=== PATIENT | male | born 1975 | race Caucasian/White ===

== ENCOUNTER 2020-09-21 15:35 | Emergency (ER) | payer OTHER ==
[~2020-09-21] VITALS: Ht 182.9 cm; Wt 113.4 kg
[2020-09-21] MEDS ORDERED: GEMFIBROZIL600 MG PO (15:46)
[2020-09-21] MEDS ORDERED: PRILOSEC OTC20 MG PO (15:47)
[2020-09-21] MEDS ORDERED: BACTRIM DS TAB1 EACH PO (18:41)
[2020-09-21] MEDS ORDERED: CEPHALEXIN500 M1 PO (18:41)
[2020-09-21] MEDS ORDERED: HYDROCODON-ACE1 EA11 PO (18:41)
== END 2020-09-21 18:55 | disposition home or self-care (01) ==
LOC: ED 15:35
DX: M70.41 Prepatellar bursitis, right knee (principal); E78.00 Pure hypercholesterolemia, unspecified; K21.9 Gastro-esophageal reflux disease without esophagitis; F17.200 Nicotine dependence, unspecified, uncomplicated; Z79.899 Other long term (current) drug therapy
CPT/HCPCS: 99283; A9270

== ENCOUNTER 2020-09-22 20:31 | Emergency (ER) | payer OTHER ==
[~2020-09-22] VITALS: Ht 182.9 cm; Wt 108.9 kg
[~2020-09-22 20:31] MED LIST: BACTRIM DS TAB1 EACH PO; CEPHALEXIN500 M1 PO; GEMFIBROZIL600 MG PO; HYDROCODON-ACE1 EA11 PO; PRILOSEC OTC20 MG PO
--- OUTSIDE RECORDS SUMMARY | 2020-09-22 20:40 | XMS ---
PreManage Notification: DILEEP CHIN Security Hog Tender Events No recent Security Events currently on file CRITERIA MET - [facility] - 2 Visits in 30 Days CARE PROVIDERS There are no care providers on record at this time. Kane has no Care Guidelines for this patient. Sid VISIT COUNT (12 MO.) 2 [facility] TOTAL 2 NOTE: Visits indicate total known visits. ED/C VISIT TRACKING (12 MO.) [facility] COMPLAINT: - R KNEE PAIN 09/21/2020 15:36 [facility] [place] TYPE: Emergency COMPLAINT: - RIGHT LEG INJ INPATIENT VISIT TRACKING (12 MO.) No inpatient visits to display in this time frame [email or web address]
== END 2020-09-23 00:10 | disposition home or self-care (01) ==
LOC: ED 20:31
DX: L03.115 Cellulitis of right lower limb (principal); E78.00 Pure hypercholesterolemia, unspecified; K21.9 Gastro-esophageal reflux disease without esophagitis; F17.200 Nicotine dependence, unspecified, uncomplicated; Z79.899 Other long term (current) drug therapy
CPT/HCPCS: 80053; 83605; 85025; 96374; 99283-25; J3370; J7060

== ENCOUNTER 2024-09-26 09:08 | Emergency (ER) | payer MEDICAID ==
[~2024-09-26] VITALS: Ht 182.9 cm; Wt 123.0 kg
[2024-09-26] MEDS ORDERED: HYDROmorphone HCL 1 MG/ML SYR IV ONE ×3 (09:30→12:45)
[2024-09-26] MEDS ORDERED: SODIUM CHLORIDE 0.9% 1,000 ML IV ONE (09:30)
[2024-09-26 09:46] LABS: BASOPHILS 0.5 % (0.2-1.2); EOSINOPHILS 4.1 % (0.8-7.0); LYMPHOCYTES 32.9 % (21.8-53.1); MCH 29.6 PG (25.7-32.2); MCHC 34.9 g/dL (32.3-36.5); MCV 84.7 fL (79.0-92.2); MONOCYTES 5.8 % (5.3-12.2); NEUTROPHILS 56.4 % (34.0-67.9); RBC 5.37 M/uL (4.63-6.08)
[2024-09-26] MEDS ORDERED: FREESTYLE LIBR1 EAC8 MC (09:51)
[2024-09-26] MEDS ORDERED: HUMALOG100 UNIT/2 SUB-Q (09:52)
[2024-09-26] MEDS ORDERED: INSULIN GL300 UNIT/1 (09:52)
[2024-09-26 09:55] LABS: GLOMERULAR FILTRATION RATE,EST 90.0 mL/min (>60); PROTEIN, TOTAL 7.3 g/dL (6.4-8.2); UREA NITROGEN 20.0 mg/dL (7-18)
[2024-09-26 10:27] LABS: ALT (SGPT) 31.0 U/L (14-59); AST (SGOT) 20.0 U/L (15-37)
[2024-09-26 12:46] VITALS: BP 104/69
[2024-09-27] MEDS ORDERED: PROMETHAZINE HC25 M1 PO (15:34)
[2024-09-27] MEDS ORDERED: HYDROCODON-ACE1 EA11 PO (15:34)
== END 2024-09-26 13:01 | disposition home or self-care (01) ==
LOC: ED 09:08
PROVIDERS: Emergency Medicine
DX: R10.9 Unspecified abdominal pain (principal); E78.00 Pure hypercholesterolemia, unspecified; K21.9 Gastro-esophageal reflux disease without esophagitis; F17.200 Nicotine dependence, unspecified, uncomplicated; Z87.19 Personal history of other diseases of the digestive system; Z90.49 Acquired absence of other specified parts of digestive tract; Z79.4 Long term (current) use of insulin; Z79.899 Other long term (current) drug therapy
CPT/HCPCS: 36415; 74177; 80053; 83690; 85025; 96375; 96376; 99284-25; J1171; J2405; J7030; Q9967

== ENCOUNTER 2024-09-27 12:07 | Emergency (ER) | payer OTHER ==
[~2024-09-27] VITALS: Ht 182.9 cm; Wt 123.0 kg
[~2024-09-27 12:07] MED LIST changes: +FREESTYLE LIBR1 EAC8 MC; +HUMALOG100 UNIT/2 SUB-Q; +INSULIN GL300 UNIT/1
--- OUTSIDE RECORDS SUMMARY | 2024-09-27 12:15 | XMS ---
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 Kane has no Care Guidelines for this patient. Sid VISIT COUNT (12 MO.) 2 [facility] TOTAL 4 NOTE: Visits indicate total known visits. ED/UCC VISIT TRACKING (12 MO.) 09/27/2024 12:07 [facility] [place] TYPE: Emergency COMPLAINT: - FLANK PIAN 09/26/2024 09:08 [facility] [place] TYPE: Emergency COMPLAINT: - ABDOMINAL PAIN 03/18/2024 11:10 [facility] TYPE: Emergency DIAGNOSES: - Epigastric pain - Abdominal Pain 03/13/2024 00:41 [facility] TYPE: Emergency DIAGNOSES: - Periapical abscess without sinus - Dental Problem INPATIENT VISIT TRACKING (12 MO.) No inpatient visits to display in this time frame [id number]
[2024-09-27 12:26] LABS: BASOPHILS 0.5 % (0.2-1.2); EOSINOPHILS 4.4 % (0.8-7.0); LYMPHOCYTES 36.1 % (21.8-53.1); MCH 29.2 PG (25.7-32.2); MCHC 35.0 g/dL (32.3-36.5); MCV 83.6 fL (79.0-92.2); MONOCYTES 5.9 % (5.3-12.2); NEUTROPHILS 52.8 % (34.0-67.9); RBC 5.30 M/uL (4.63-6.08)
[2024-09-27 12:42] LABS: GLOMERULAR FILTRATION RATE,EST 87.0 mL/min (>60); PROTEIN, TOTAL 7.5 g/dL (6.4-8.2); UREA NITROGEN 18.0 mg/dL (7-18)
[2024-09-27 13:08] LABS: ALT (SGPT) 32.0 U/L (14-59)
[2024-09-27] MEDS ORDERED: HYDROmorphone HCL 1 MG/ML SYR IV PRN (13:15)
[2024-09-27] MEDS ORDERED: SODIUM CHLORIDE 0.9% 1,000 ML IV ONE (13:15)
[2024-09-27 13:50] LABS: AST (SGOT) 20.0 U/L (15-37)
[2024-09-27 14:05] LABS: BLOOD/HGB, URINE NEGATIVE (Negative); KETONE, URINE NEGATIVE (Negative); LEUK ESTERASE, URINE NEGATIVE (negative); NITRITE, URINE NEGATIVE (negative)
[2024-09-27] MEDS ORDERED: PROMETHAZINE HC25 M1 PO (15:34)
[2024-09-27] MEDS ORDERED: HYDROCODON-ACE1 EA11 PO (15:34)
[2024-09-27] MEDS ORDERED: HYDROCODONE/ACETA 5/325 TAB PO ONE (15:45)
[2024-09-27 15:54] VITALS: BP 124/65
== END 2024-09-27 15:54 | disposition home or self-care (01) ==
LOC: ED 12:07
PROVIDERS: Emergency Medicine
DX: R10.9 Unspecified abdominal pain (principal); E78.00 Pure hypercholesterolemia, unspecified; K21.9 Gastro-esophageal reflux disease without esophagitis; E11.9 Type 2 diabetes mellitus without complications; F17.200 Nicotine dependence, unspecified, uncomplicated; Z79.4 Long term (current) use of insulin; Z79.899 Other long term (current) drug therapy
CPT/HCPCS: 36415; 80053; 81003; 83690; 83735; 85025; 96374; 96375; 99284-25; J1171; J1790; J2405; J7030

== ENCOUNTER 2024-11-15 18:49 | Emergency (ER) | payer MEDICAID ==
[~2024-11-15] VITALS: Ht 182.9 cm; Wt 122.8 kg
[~2024-11-15 18:49] MED LIST changes: -INSULIN GL300 UNIT/1; +INSULIN GL300 UNIT/1 SUB-Q; +OMEPRAZOLE20 MG PO; -PRILOSEC OTC20 MG PO; +PROMETHAZINE HC25 M1 PO
[2024-11-15 19:39] LABS: BASOPHILS 0.4 % (0.2-1.2); EOSINOPHILS 3.7 % (0.8-7.0); LYMPHOCYTES 37.6 % (21.8-53.1); MCH 31.8 PG (25.7-32.2); MCHC 37.4 g/dL (32.3-36.5); MCV 84.9 fL (79.0-92.2); MONOCYTES 8.3 % (5.3-12.2); NEUTROPHILS 49.8 % (34.0-67.9); RBC 4.97 M/uL (4.63-6.08)
[2024-11-15] MEDS ORDERED: LACTATED RINGER'S 1,000 ML IV ONE (19:45)
[2024-11-15 20:11] LABS: AMPHETAMINES, URINE NEGATIVE (NEGATIVE); BARBITURATES, URINE NEGATIVE (NEGATIVE); BENZODIAZEPINE, URINE NEGATIVE (NEGATIVE); CANNABINOID, URINE POSITIVE (NEGATIVE); COCAINE, URINE NEGATIVE (NEGATIVE); ECSTASY, URINE NEGATIVE (NEGATIVE); FENTANYL, URINE NEGATIVE (NEGATIVE); METHADONE, URINE NEGATIVE (NEGATIVE); OPIATES, URINE NEGATIVE (NEGATIVE); OXYCODONE, URINE NEGATIVE (NEGATIVE); PHENCYCLIDINE, URINE NEGATIVE (NEGATIVE)
[2024-11-15 20:25] LABS: CHOLESTEROL/HDL RATIO 15.0; NON-HDL CHOLESTEROL 364.00
[2024-11-15 20:27] LABS: GLOMERULAR FILTRATION RATE,EST 82 mL/min (>60); PROTEIN, TOTAL 7.1 g/dL (6.4-8.2); UREA NITROGEN 24 mg/dL (7-18)
[2024-11-15 21:00] LABS: AST (SGOT) 18 U/L (15-37)
[2024-11-15] MEDS ORDERED: Insulin Regular, Human 100 UNIT/ML ML IV ONE (21:00)
[2024-11-15] MEDS ORDERED: ACETAMINOPHEN 500 MG TAB PO ONE (21:15)
[2024-11-15] MEDS ORDERED: HYDROmorphone HCL 1 MG/ML SYR IV PRN (21:45)
[2024-11-15 21:46] LABS: ALT (SGPT) 30 U/L (14-59)
[2024-11-15] MEDS ORDERED: CYCLOBENZAPRINE HCL 10 MG HOME.PACK PO ONE (23:00)
[2024-11-15] MEDS ORDERED: LANTUS100 UNITS/ SUB-Q (23:13)
[2024-11-15] MEDS ORDERED: ADMELOG100 UNIT/1 SUB-Q (23:21)
[2024-11-15] MEDS ORDERED: INSULIN SYRING1 EAC1 MISC (23:22)
[2024-11-15 23:37] VITALS: BP 109/79
--- NOTE | 2024-11-17 23:00 | EKG ---
[facility] [address] [facility] [place] [address] Signed Normal sinus rhythm Normal ECG No previous ECGs available Confirmed by Henry Wayne MD () on 11/17/2024 10:59:44 PM Electronically Signed By: HENRY WAYNE MD 11/17/240 PATIENT NAME: DILEEP CHIN Electrocardiogram DATE OF : 79 PHYSICIAN: HENRY WAYNE MD REPORT #: [id number] REPORT IS CONFIDENTIAL AND NOT TO BE RELEASED WITHOUT AUTHORIZATION
== END 2024-11-15 23:42 | disposition home or self-care (01) ==
LOC: ED 18:49
PROVIDERS: Internal Medicine
DX: E11.65 Type 2 diabetes mellitus with hyperglycemia (principal); E78.00 Pure hypercholesterolemia, unspecified; K21.9 Gastro-esophageal reflux disease without esophagitis; E11.9 Type 2 diabetes mellitus without complications; F17.200 Nicotine dependence, unspecified, uncomplicated; Z79.4 Long term (current) use of insulin; Z79.899 Other long term (current) drug therapy
CPT/HCPCS: 36415; 70450; 71045; 80053; 80061; 80307; 82010; 83036; 83690; 83880; 84484; 85025; 93005; 93010; 96361; 96374; 96375; 99284-25; A9270; J1171; J1815; J2405; J7121

== ENCOUNTER 2024-11-17 07:54 | Inpatient (IN) | payer OTHER ==
[2024-11-17] VITALS (10 sets, daily range): BP systolic 107–125; BP diastolic 62–97
[~2024-11-17] VITALS: Ht 182.9 cm; Wt 132.6 kg
[~2024-11-17 07:54] MED LIST changes: +ADMELOG100 UNIT/1 SUB-Q; +INSULIN SYRING1 EAC1 MISC; +LANTUS100 UNITS/ SUB-Q
--- OUTSIDE RECORDS SUMMARY | 2024-11-17 07:59 | XMS ---
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 Kane has no Care Guidelines for this patient. Sid VISIT COUNT (12 MO.) 4 [facility] TOTAL 6 NOTE: Visits indicate total known visits. ED/UCC VISIT TRACKING (12 MO.) 11/17/2024 07:54 [facility] [place] TYPE: Emergency COMPLAINT: - ABDOMINAL PAIN 11/15/2024 18:50 [facility] [place] TYPE: Emergency COMPLAINT: - BLOOD SUGAR PROBLEM DIAGNOSES: - Gastro-esophageal reflux disease without esophagitis - long-term (current) use of insulin - Nicotine dependence, unspecified, uncomplicated - Other jail (current) drug therapy - Pure hypercholesterolemia, unspecified - Type 2 diabetes mellitus with hyperglycemia - Type 2 diabetes mellitus without complications 09/27/2024 12:07 [facility] [place] TYPE: Emergency COMPLAINT: - FLANK PIAN DIAGNOSES: - Gastro-esophageal reflux disease without esophagitis - intermediate teacher (current) use of 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 - Nicotine dependence, unspecified, uncomplicated - Other jail (current) drug therapy - Pure hypercholesterolemia, unspecified - Type 2 diabetes mellitus without complications - Unspecified abdominal pain 09/26/2024 09:08 [facility] [place] TYPE: Emergency COMPLAINT: - ABDOMINAL PAIN DIAGNOSES: - Acquired absence of other specified parts of digestive tract - Gastro-esophageal reflux disease without esophagitis - intermediate teacher (current) use of insulin - Nicotine dependence, unspecified, uncomplicated - Other jail (current) drug therapy - Personal history of other diseases of the digestive system - Pure hypercholesterolemia, unspecified - Unspecified abdominal pain 03/18/2024 11:10 [facility] TYPE: Emergency DIAGNOSES: - Epigastric pain - Abdominal Pain 03/13/2024 00:41 Sh[facility]ARG[facility] TYPE: Emergency DIAGNOSES: - Periapical abscess without sinus - Dental Problem INPATIENT VISIT TRACKING (12 MO.) No inpatient visits to display in this time frame [id number]
[2024-11-17] MEDS ORDERED: MORPHINE SULFATE 4 MG/ML VIAL IV ONE ×2 (08:15→09:45)
[2024-11-17] MEDS ORDERED: SODIUM CHLORIDE 0.9% 2,000 ML IV ONE (08:15)
[2024-11-17 08:28] LABS: BASOPHILS 0.3 % (0.2-1.2); EOSINOPHILS 3.8 % (0.8-7.0); LYMPHOCYTES 25.7 % (21.8-53.1); MCH 31.1 PG (25.7-32.2); MCHC 37.0 g/dL (32.3-36.5); MCV 84.1 fL (79.0-92.2); MONOCYTES 5.6 % (5.3-12.2); NEUTROPHILS 64.4 % (34.0-67.9); RBC 5.11 M/uL (4.63-6.08)
[2024-11-17 08:47] LABS: BLOOD/HGB, URINE NEGATIVE (Negative); KETONE, URINE NEGATIVE (Negative); LEUK ESTERASE, URINE NEGATIVE (negative); NITRITE, URINE NEGATIVE (negative)
[2024-11-17 08:56] LABS: UREA NITROGEN 19.0 mg/dL (7-18)
[2024-11-17 09:44] LABS: GLOMERULAR FILTRATION RATE,EST 106.0 mL/min (>60); PROTEIN, TOTAL 7.3 g/dL (6.4-8.2)
[2024-11-17 10:41] LABS: ALT (SGPT) 40.0 U/L (14-59); AST (SGOT) 24.0 U/L (15-37)
[2024-11-17] MEDS ORDERED: HYDROmorphone HCL 1 MG/ML SYR IV ONE ×2 (10:45→12:00)
[2024-11-17] MEDS ORDERED: NACL 0.9% IV SCH (12:45)
[2024-11-17] MEDS ORDERED: DEXTROSE 50% 50 ML SYR IV PRN ×2 (12:45)
[2024-11-17] MEDS ORDERED: DEXTROSE 5% 1,000 ML IV PRN (12:45)
[2024-11-17] MEDS ORDERED: DEXTROSE 5% - LACTATED RINGERS 1,000 ML IV SCH (12:45)
[2024-11-17] MEDS ORDERED: HYDROmorphone HCL 1 MG/ML SYR IV PRN (12:45)
[2024-11-17] MEDS ORDERED: LACTATED RINGER'S 1,000 ML IV SCH ×2 (12:45→23:00)
[2024-11-17] MEDS ORDERED: INSULIN REGULAR IV SCH (12:45)
[2024-11-17] MEDS ORDERED: IBLOOD GLUCOSE TEST STRIP 1 EA TEST XX PRN (12:45)
[2024-11-17] MEDS ORDERED: GLUCAGON,HUMAN RECOMBINANT 1 MG/ML VIAL SUB-Q PRN (12:45)
[2024-11-17] MEDS ORDERED: PROCHLORPERAZINE EDISYLATE 10 MG/2 ML VIAL IV PRN (12:45)
[2024-11-17] MEDS ORDERED: IBLOOD GLUCOSE TEST STRIP 1 EA TEST VI SCH (14:00)
[2024-11-17] MEDS ORDERED: METFORMIN HCL500 MG PO (16:39)
[2024-11-17] MEDS ORDERED: KETOROLAC TROMETHAMINE 15 MG/ML VIAL IV PRN (17:30)
[2024-11-17] MEDS ORDERED: NICOTINE 21 MG/24 HR 1 EA TDSY TD SCH (18:15)
[2024-11-17 19:49] LABS: GLOMERULAR FILTRATION RATE,EST 111.0 mL/min (>60); UREA NITROGEN 15.0 mg/dL (7-18)
[2024-11-17] MEDS ORDERED: PANTOPRAZOLE SODIUM 40 MG/10 ML VIAL IV SCH (21:00)
[2024-11-17] MEDS ORDERED: LACTATED RINGER'S 1,000 ML IV ONE (22:00)
[2024-11-17] MEDS ORDERED: POTASSIUM CHLORIDE 10 MEQ/100 ML BAG IV ONE (23:00)
[2024-11-17] MEDS ORDERED: POTASSIUM CHLORIDE 10 MEQ/100 ML BAG IV SCH (23:00)
[2024-11-17] MEDS ORDERED: LORazepam 2 MG/ML VIAL IV PRN (23:00)
[2024-11-18] VITALS (11 sets, daily range): BP systolic 106–155; BP diastolic 72–109
[2024-11-18 05:24] LABS: BASOPHILS 0.2 % (0.2-1.2); EOSINOPHILS 2.6 % (0.8-7.0); LYMPHOCYTES 31.5 % (21.8-53.1); MCH 30.5 PG (25.7-32.2); MCHC 35.2 g/dL (32.3-36.5); MCV 86.6 fL (79.0-92.2); MONOCYTES 7.2 % (5.3-12.2); NEUTROPHILS 58.3 % (34.0-67.9); RBC 4.33 M/uL (4.63-6.08)
[2024-11-18 06:05] LABS: ALT (SGPT) 53.0 U/L (14-59); AST (SGOT) 54.0 U/L (15-37); GLOMERULAR FILTRATION RATE,EST 113.0 mL/min (>60); PHOSPHORUS, INORGANIC 2.9 mg/dL (2.5-4.9); PROTEIN, TOTAL 6.1 g/dL (6.4-8.2); UREA NITROGEN 13.0 mg/dL (7-18)
[2024-11-18 06:16] LABS: CHOLESTEROL/HDL RATIO 12.8; NON-HDL CHOLESTEROL 377.00
[2024-11-18] MEDS ORDERED: INSULIN REGULAR IN 0.9 % NACL 100 ML IV SCH ×2 (09:00→12:45)
[2024-11-18] MEDS ORDERED: ENOXAPARIN SODIUM 40 MG/0.4 ML SYR SUB-Q SCH (09:00)
[2024-11-18] MEDS ORDERED: IBLOOD GLUCOSE TEST STRIP 1 EA TEST VI SCH ×2 (09:00)
[2024-11-18] MEDS ORDERED: PHARMACY RENAL DOSE ADJUSTMENT 1 DOSE MISC PO SCH (12:00)
[2024-11-18] MEDS ORDERED: OXYCODONE/APAP 10/325 TAB PO PRN (15:00)
[2024-11-18] MEDS ORDERED: DEXTROSE 10% 1,000 ML IV SCH (16:45)
[2024-11-18] MEDS ORDERED: PANTOPRAZOLE SODIUM 40 MG TABEC PO SCH (21:00)
[2024-11-19] VITALS (19 sets, daily range): BP systolic 117–163; BP diastolic 84–110
[2024-11-19 05:21] LABS: BASOPHILS 0.3 % (0.2-1.2); EOSINOPHILS 4.3 % (0.8-7.0); LYMPHOCYTES 42.0 % (21.8-53.1); MCH 29.9 PG (25.7-32.2); MCHC 34.3 g/dL (32.3-36.5); MCV 87.2 fL (79.0-92.2); MONOCYTES 7.4 % (5.3-12.2); NEUTROPHILS 46.0 % (34.0-67.9); RBC 4.15 M/uL (4.63-6.08)
[2024-11-19 05:45] LABS: CHOLESTEROL/HDL RATIO 12.6; GLOMERULAR FILTRATION RATE,EST 112 mL/min (>60); NON-HDL CHOLESTEROL 454.00; PROTEIN, TOTAL 5.7 g/dL (6.4-8.2); UREA NITROGEN 8 mg/dL (7-18)
[2024-11-19 06:10] LABS: ALT (SGPT) 54 U/L (14-59); AST (SGOT) 36 U/L (15-37)
[2024-11-19] MEDS ORDERED: HYDROmorphone HCL 1 MG/ML SYR IV SCH (10:00)
[2024-11-19] MEDS ORDERED: DEXTROSE 50% 50 ML SYR IV SCH (10:00)
--- NOTE | 2024-11-19 12:54 | CONS ---
[facility] [address] [place], [place] [address] Signed DATE OF CONSULTATION: 11/18/2024 TIME: 4:45 p.m. REQUESTING PHYSICIAN: Dr. Galaviz. PROBLEM: Left medial thigh questionable infected soft tissue. HISTORY: This is a 49-year-old white man who has significant underlying diabetes with variable control and was admitted by Dr. Galaviz to the hospital having presented to the emergency room with significant abdominal pain and known history of chronic pancreatitis with etiology of hypertriglyceridemia. The patient says he has had cholecystectomy in the past already. His lab studies obtained as regard to the pancreatitis showed his lipase to be 46, which was actually normal, but triglyceride level of 5630 (normal less than 150 ng/dL). His liver enzymes are normal that are noted. The patient is having complaints in the left medial upper thigh for which examination was undertaken showing an area of mild tenderness but no sign of erythema. An imaging study was undertaken, which described a 1.2 x 0.5 x 1 cm fluid collection beneath the skin surface suspicious for a small abscess. Echogenic fat consistent with cellulitis was noted as was interspersed fluid between fat lobulations. The patient additionally underwent an abdominal and pelvic CT scan of the abdomen which showed no CT findings of abdominal pain, though he did have hepatic steatosis. REVIEW OF SYSTEMS: He denies any fever or chills. He feels that the pain in the medial inner thigh is larger than it may appear as regard to a palpable abnormality. PHYSICAL EXAMINATION: GENERAL: This is a somewhat obese white man who looks to be not systemically toxic. VITAL SIGNS: Temperature 98.7; pulse 67; blood pressure 155/109, previously 111/72. He has O2 saturation of 100% on room air on 2 L nasal cannula oxygen and 98% on room air. He shows no signs of systemic sepsis. NECK: Trachea is midline. CHEST: Shows normal respiratory excursion. He has no tachypnea. ABDOMEN: Somewhat obese. EXTREMITIES: Examination of the left upper medial thigh shows a small nodular area Electronically Signed By: NGOZI CHANDLER MD 11/19/24 1254 PATIENT NAME: DILEEP CHIN CONSULTATION DATE OF : 79 REPORT #: [id number] PHYSICIAN: NGOZI CHANDLER MD PCP: NO PRIMARY CARE PHYSICIAN REPORT IS CONFIDENTIAL AND NOT TO BE RELEASED WITHOUT AUTHORIZATION [facility] [address] [place], [place] [address] Signed without associated erythema. There is only minimal tenderness. I do not see extensive edema or swelling in any way. ASSESSMENT: The lesion in question clinically appears to be an epidermal inclusion cyst rather than a fluctuant abscess, though this imaging study does suggest possible abscess. There is no erythema, local tenderness, or other finding including moist or warm heat. Rather than incising this area at this time, I would recommend a moist hot compress to the area in question. I will re-evaluate tomorrow. A bedside drainage of fluctuance under local anesthesia might be a consideration depending on those findings. I will review the ultrasound that was used to provide this preliminary diagnosis. Upon review, the area does not appear to be particularly problematic and might well represent an epidermal inclusion cyst as described. Ngozi Chandler MD /MODL /[id number] cc: Dr. Galaviz Copies: ~ Electronically Signed By: NGOZI CHANDLER MD 11/19/24 1254 PATIENT NAME: DILEEP CHIN CONSULTATION DATE OF : 79 REPORT #: [id number] PHYSICIAN: NGOZI CHANDLER MD PCP: NO PRIMARY CARE PHYSICIAN REPORT IS CONFIDENTIAL AND NOT TO BE RELEASED WITHOUT AUTHORIZATION
[2024-11-19] MEDS ORDERED: FENOFIBRATE,MICRONIZED 145 MG TAB PO SCH (15:04)
[2024-11-19] MEDS ORDERED: DEXTROSE 37.5 GM TUBE PO PRN ×2 (15:15→15:30)
[2024-11-19] MEDS ORDERED: DEXTROSE 50 % 50 ML VIAL IV SCH (16:45)
[2024-11-19] MEDS ORDERED: POLYMYXIN B TOP SCH (18:15)
[2024-11-19] MEDS ORDERED: BACITRACIN TOP SCH (18:15)
[2024-11-19] MEDS ORDERED: POLYETHYLENE GLYCOL 3350 1 PACKET PO SCH (21:00)
[2024-11-19] MEDS ORDERED: SENNOSIDES/DOCUSATE 1 EA TAB PO SCH (21:00)
[2024-11-19] MEDS ORDERED: ATORVASTATIN 40 MG TAB PO SCH (21:00)
[2024-11-19 21:03] LABS: BASOPHILS 0.4 % (0.2-1.2); EOSINOPHILS 3.7 % (0.8-7.0); LYMPHOCYTES 27.0 % (21.8-53.1); MCH 29.8 PG (25.7-32.2); MCHC 34.3 g/dL (32.3-36.5); MCV 86.9 fL (79.0-92.2); MONOCYTES 9.8 % (5.3-12.2); NEUTROPHILS 58.9 % (34.0-67.9); RBC 4.59 M/uL (4.63-6.08)
[2024-11-19 21:14] LABS: INR 0.89 (0.80-1.30); PROTIME 11.4 Sec (11.2-14.2)
[2024-11-19 21:18] LABS: GLOMERULAR FILTRATION RATE,EST 108.0 mL/min (>60); PROTEIN, TOTAL 6.5 g/dL (6.4-8.2); UREA NITROGEN 7.0 mg/dL (7-18)
[2024-11-19 21:50] LABS: ALT (SGPT) 63.0 U/L (14-59); AST (SGOT) 42.0 U/L (15-37)
[2024-11-19] MEDS ORDERED: TENECTEPLASE 50 MG/10 ML VIAL ONE (22:05)
[2024-11-19] MEDS ORDERED: TENECTEPLASE 50 MG/10 ML VIAL IV ONE (22:15)
[2024-11-20] VITALS: BP 111/75
[2024-11-20 00:15] VITALS: BP 112/67
[2024-11-20 00:30] VITALS: BP 128/79
== END 2024-11-20 01:00 | disposition short-term general hospital (02) | DRG 642 ==
LOC: ED 07:54 → CCU 13:10 → MS 13:10 → CCU 14:02
PROVIDERS: Emergency Medicine; ADMIT Family Medicine; ATTEND Family Medicine
DX: E78.1 Pure hyperglyceridemia (principal); K85.90 Acute pancreatitis without necrosis or infection, unspecified; L02.416 Cutaneous abscess of left lower limb; L03.113 Cellulitis of right upper limb; K21.9 Gastro-esophageal reflux disease without esophagitis; E11.9 Type 2 diabetes mellitus without complications; F17.210 Nicotine dependence, cigarettes, uncomplicated; E66.9 Obesity, unspecified; Z90.49 Acquired absence of other specified parts of digestive tract; Z98.1 Arthrodesis status; Z79.899 Other long term (current) drug therapy; Z79.4 Long term (current) use of insulin; Z79.84 Long term (current) use of oral hypoglycemic drugs
CPT/HCPCS: 36415; 36592; 51798; 70450; 70460; 70496; 70498; 74177; 76882; 80048; 80053; 80061; 81003; 82800; 83036; 83690; 83735; 84100; 84478; 85025; 85610; 85730; 87040; 96374; 96375; 96376; 99285-25; A9270; J1171; J1650; J1815; J1885; J2060; J2270; J2405; J2470; J3101; J3480; J7030; J7121; Q3014; Q9967

== ENCOUNTER 2024-11-29 10:21 | Observation (INO) | payer MEDICAID ==
[~2024-11-29] VITALS: Ht 182.9 cm; Wt 125.8 kg
--- OUTSIDE RECORDS SUMMARY | ~2024-11-29 | XMS | Continuity of Care Document ---
Demographics + + + | Address | [address] | | | [place] [address] | + + + | Preferred Language | Unknown | + + + | Marital Status | | + + + | Roman Catholic Affiliation | Unknown | + + + | Race | White | + + + | Ethnic Group | Unknown | + + + Author + + + | Author | [facility] | + + + | Organization | [facility] | + + + | Address | [address] | | | [place] [address] | + + + | Phone | | + + + Care Team Providers + + + + | Care Metal Miner Blasting Name | Role | Phone | + [...] +--------+ + + | | 2024-11-20 | [facility] | 0.0 | per 100 | (missing) | | NRBC.BLD.QN. | 01:37 | [facility] | | [facility] | | | AUTO (K/UL) | | Medical | | | | | | | Center | | | | + + + +--------+ + + | | 2024-11-20 | [facility] | 0.00 | k/ul | (missing) | | NRBC.BLD.QN. | 01:37 | [facility] | | | | | AUTO (K/UL) | | Medical | | | | | | | Center | | | | + + + +--------+ + + | | 2024-11-20 | [facility] | 0.01 | k/ul | (missing) | | NRBC.BLD.QN. | 01:37 | [facility] | | | | | AUTO (K/UL) | | Medical | | | | | | | Center | | | | + + + +--------+ + + | | 2024-11-20 | [facility] | 0.02 | k/ul | (missing) | | NRBC.BLD.QN. | 01:37 | [facility] | | | | | AUTO (K/UL) | | Medical | | | | | | | Center | | | | + + + +--------+ + + | | 2024-11-20 | [facility] | 0.19 | k/ul | (missing) | | NRBC.BLD.QN. | 01:37 | [facility] | | | | | AUTO (K/UL) | | Medical | | | | | | | Center | | | | + + + +--------+ + + | | 2024-11-20 | [facility] | 0.2 | % | (missing) | | NRBC.BLD.QN. | 01:37 | [facility] | | | | | AUTO (K/UL) | | Medical | | | | | | | Center | | | | + + + +--------+ + + | | 2024-11-20 | [facility] | 0.37 | k/ul | (missing) | | NRBC.BLD.QN. | 01:37 | [facility] | | | | | AUTO (K/UL) | | Medical | | | | | | | Center | | | | + + + +--------+ + + | | 2024-11-20 | [facility] | 0.4 | % | (missing) | | NRBC.BLD.QN. | 01:37 | [facility] | | | | | AUTO (K/UL) | | Medical | | | | | | | Center | | | | + + + +--------+ + + | EGFR | 2024-11-20 | [facility] | 0.5 | mg/dl | (missing) | | ML/MIN/1.73 | 01:37 | [facility] | | | | | SQ | | Medical | | | | | M.PREDICTED | | Center | | | | + + + +--------+ + + | EGFR | 2024-11-20 | [facility] | 0.9 | (missing) | (missing) | | ML/MIN/1.73 | 01:37 | [facility] | | | | | SQ | | Medical | | | | | M.PREDICTED | | Center | | | | + + + +--------+ + + | EGFR | 2024-11-20 | [facility] | 0.97 | mg/dl | (missing) | | ML/MIN/1.73 | 01:37 | [facility] | | | | | SQ | | Medical | | | | | M.PREDICTED | | Center | | | | + + + +--------+ + + | | 2024-11-20 | [facility] | 1.17 | k/ul | (missing) | | NRBC.BLD.QN. | 01:37 | [facility] | | | | | AUTO (K/UL) | | Medical | | | | | | | Center | | | | + + + +--------+ + + | | 2024-11-20 | [facility] | 1.6 | mg/dl | (missing) | | MAGNESIUM.SE | 01:37 | [facility] | | | | | R/PLAS.QN | | Medical | | | | | (MG/DL) | | Center | | | | + + + +--------+ + + | | 2024-11-20 | [facility] | 10.3 | fl | (missing) | | NRBC.BLD.QN. | 01:37 | [facility] | | | | | AUTO (K/UL) | | Medical | | | | | | | Center | | | | + + + +--------+ + + | EGFR | 2024-11-20 | [facility] | 100 | mmol/l | (missing) | | ML/MIN/1.73 | 01:37 | [facility] | | | | | SQ | | Medical | | | | | M.PREDICTED | | Center | | | | + + + +--------+ + + | | 2024-11-20 | [facility] | 13.3 | % | (missing) | | NRBC.BLD.QN. | 01:37 | [facility] | | | | | AUTO (K/UL) | | Medical | | | | | | | Center | | | | + + + +--------+ + + | | 2024-11-20 | [facility] | 13.5 | g/dl | (missing) | | NRBC.BLD.QN. | 01:37 | [facility] | | | | | AUTO (K/UL) | | Medical | | | | | | | Center | | | | + + + +--------+ + + | EGFR | 2024-11-20 | [facility] | 133 | mmol/l | (missing) | | ML/MIN/1.73 | 01:37 | [facility] | | | | | SQ | | Medical | | | | | M.PREDICTED | | Center | | | | + + + +--------+ + + | | 2024-11-20 | [facility] | 156 | k/ul | (missing) | | NRBC.BLD.QN. | 01:37 | [facility] | | | | | AUTO (K/UL) | | Medical | | | | | | | Center | | | | + + + +--------+ + + | | 2024-11-20 | [facility] | 2.2 | mg/dl | Sample | | PHOSPHORUS.S | 01:37 | [facility] | | | lipemic,resu | | ER/PLAS.QN | | Medical | | | lt may be | | (MG/DL) | | Center | | | affected. | + + + +--------+ + + | EGFR | 2024-11-20 | [facility] | 2.9 | g/dl | (missing) | | ML/MIN/1.73 | 01:37 | [facility] | | | | | SQ | | Medical | | | | | M.PREDICTED | | Center | | | | + + + +--------+ + + | EGFR | 2024-11-20 | [facility] | 211 | mg/dl | | | ML/MIN/1.73 | 01:37 | [facility] | | | | | SQ | | Medical | | | | | M.PREDICTED | | Center | | | | + + + +--------+ + + Social History +--------+ + + | date | description | facility | +--------+ + + Vital Signs No information."
--- OUTSIDE RECORDS SUMMARY | ~2024-11-29 | XMS | Continuity of Care Document ---
Demographics + + + | Address | [address] | | | [place] [address] | + + + | Preferred Language | Unknown | + + + | Marital Status | | + + + | Orthodox Affiliation | Unknown | + + + | Race | White | + + + | Ethnic Group | Unknown | + + + Author + + + | Author | [facility] | + + + | Organization | [facility] | + + + | Address | [address] | | | [place] [address] | + + + | Phone | | + + + Care Team Providers + + + + | Care Power Barker Name | Role | Phone | + [...] +--------+ + + | | 2024-11-20 | [facility] | 0.0 | per 100 | (missing) | | NRBC.BLD.QN. | 01:37 | [facility] | [facility]K/UL) | | [facility] | | | | | [facility] | | | | + + + +--------+ + + | | 2024-11-20 | [facility] | 0.00 | k/ul | (missing) | | NRBC.BLD.QN. | 01:37 | [facility] | | | | [facility] (K/UL) | | [facility] | | | | | | | Center | | | | + + + +--------+ + + | | 2024-11-20 | [facility] | 0.01 | k/ul | (missing) | | NRBC.BLD.QN. | 01:37 | [facility] | | | | [facility] (K/UL) | | [facility] | | | | | | | Center | | | | + + + +--------+ + + | | 2024-11-20 | [facility] | 0.02 | k/ul | (missing) | | NRBC.BLD.QN. | 01:37 | [facility] | | | | [facility] (K/UL) | | [facility] | | | | | | | Center | | | | + + + +--------+ + + | | 2024-11-20 | [facility] | 0.19 | k/ul | (missing) | | NRBC.BLD.QN. | 01:37 | [facility] | | | | [facility] (K/UL) | | [facility] | | | | | | | Center | | | | + + + +--------+ + + | | 2024-11-20 | [facility] | 0.2 | % | (missing) | | NRBC.BLD.QN. | 01:37 | [facility] | [facility]K/UL) | | [facility] | | | | | | | Center | | | | + + + +--------+ + + | | 2024-11-20 | [facility] | 0.37 | k/ul | (missing) | | NRBC.BLD.QN. | 01:37 | [facility] | | | [facility] (K/UL) | | [facility] | | | | | | | Center | | | | + + + +--------+ + + | | 2024-11-20 | [facility] | 0.4 | % | (missing) | | NRBC.BLD.QN. | 01:37 | [facility] | | | [facility] (K/UL) | | [facility] | | | | | | | Center | | | | + + + +--------+ + + | EGFR | 2024-11-20 | [facility] | 0.5 | mg/dl | (missing) | | ML/MIN/1.73 | 01:37 | [facility] | | | [facility] | | Medical | | | | | M.PREDICTED | | Center | | | | + + + +--------+ + + | EGFR | 2024-11-20 | [facility] | 0.9 | (missing) | (missing) | | ML/MIN/1.73 | 01:37 | [facility] | | [facility] | | Medical | | | | | M.PREDICTED | | Center | | | | + + + +--------+ + + | EGFR | 2024-11-20 | [facility] | 0.97 | mg/dl | (missing) | | ML/MIN/1.73 | 01:37 | [facility] | | [facility] | | Medical | | | | | M.PREDICTED | | Center | | | | + + + +--------+ + + | | 2024-11-20 | [facility] | 1.17 | k/ul | (missing) | | NRBC.BLD.QN. | 01:37 | [facility] | | | AUT[facility] (K/UL) | | [facility] | | | | | | | Center | | | | + + + +--------+ + + | | 2024-11-20 | [facility] | 1.6 | mg/dl | (missing) | | MAGNESIUM.SE | 01:37 | [facility] | | | | R/PLAS.QN | | Medical | | | | | (MG/DL) | | Center | | | | + + + +--------+ + + | | 2024-11-20 | [facility] | 10.3 | fl | (missing) | | NRBC.BLD.QN. | 01:37 | [facility] | | | | AUT[facility] (K/UL) | | [facility] | | | | | | | Center | | | | + + + +--------+ + + | EGFR | 2024-11-20 | [facility] | 100 | mmol/l | (missing) | | ML/MIN/1.73 | 01:37 | [facility] | | | S[facility] | | Medical | | | | | M.PREDICTED | | Center | | | | + + + +--------+ + + | | 2024-11-20 | [facility] | 13.3 | % | (missing) | | NRBC.BLD.QN. | 01:37 | [facility] | | | [facility] (K/UL) | | [facility] | | | | | | | Center | | | | + + + +--------+ + + | | 2024-11-20 | [facility] | 13.5 | g/dl | (missing) | | NRBC.BLD.QN. | 01:37 | [facility] | | | AUT[facility] (K/UL) | | [facility] | | | | | | | Center | | | | + + + +--------+ + + | EGFR | 2024-11-20 | [facility] | 133 | mmol/l | (missing) | | ML/MIN/1.73 | 01:37 | [facility] | | SQ | | Medical | | | | | M.PREDICTED | | Center | | | | + + + +--------+ + + | | 2024-11-20 | [facility] | 156 | k/ul | (missing) | | NRBC.BLD.QN. | 01:37 | [facility] | | | | AUTO (K/UL) | | [facility] | | | | | | | Center | | | | + + + +--------+ + + | | 2024-11-20 | [facility] | 2.2 | mg/dl | Sample | | PHOSPHORUS.S | 01:37 | [facility] | | | lipemic,resu | | ER/PLAS.QN | | Medical | | | lt may be | | (MG/DL) | | Center | | | affected. | + + + +--------+ + + | EGFR | 2024-11-20 | [facility] | 2.9 | g/dl | (missing) | | ML/MIN/1.73 | 01:37 | [facility] | | | SQ | | Medical | | | | | M.PREDICTED | | Center | | | | + + + +--------+ + + | EGFR | 2024-11-20 | [facility] | 211 | mg/dl | | | ML/MIN/1.73 | 01:37 | [facility] | | | S[facility] | | Medical | | | | | M.PREDICTED | | Center | | | | + + + +--------+ + + Social History +--------+ + + | date | description | facility | +--------+ + + Vital Signs No information."
[~2024-11-29 10:21] MED LIST changes: -GEMFIBROZIL600 MG PO; +METFORMIN HCL500 MG PO
--- OUTSIDE RECORDS SUMMARY | 2024-11-29 10:27 | XMS ---
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 Kane has no Care Guidelines for this patient. Sid VISIT COUNT (12 MO.) 5 [facility] TOTAL 7 NOTE: Visits indicate total known visits. ED/C VISIT TRACKING (12 MO.) 11/29/2024 10:21 [facility] [place] TYPE: Emergency COMPLAINT: - FACIAL NUMBNESS 11/17/2024 07:54 [facility] [place] TYPE: Emergency COMPLAINT: - ABDOMINAL PAIN 11/15/2024 18:50 [facility] [place] TYPE: Emergency COMPLAINT: - BLOOD SUGAR PROBLEM DIAGNOSES: - Gastro-esophageal reflux disease without esophagitis - long term care social worker (current) use of insulin - Nicotine dependence, unspecified, uncomplicated - Other intermediate card tender (current) drug therapy - Pure hypercholesterolemia, unspecified - Type 2 diabetes mellitus with hyperglycemia - Type 2 diabetes mellitus without complications 09/27/2024 12:07 [facility] [place] TYPE: Emergency COMPLAINT: - FLANK PIAN DIAGNOSES: - Gastro-esophageal reflux disease without esophagitis - [facility] (current) use of insulin - Nicotine dependence, unspecified, uncomplicated - Other snf (current) drug therapy - Pure hypercholesterolemia, unspecified - Type 2 diabetes mellitus without complications - Unspecified abdominal pain 09/26/2024 09:08 [facility] [place] TYPE: Emergency COMPLAINT: - ABDOMINAL PAIN DIAGNOSES: - Acquired absence of other specified parts of digestive tract - Gastro-esophageal reflux disease without esophagitis - [facility] (current) use of insulin - Nicotine dependence, unspecified, uncomplicated - Other intermediate card tender (current) drug therapy - Personal history of other diseases of the digestive system - Pure hypercholesterolemia, unspecified - Unspecified abdominal pain 03/18/2024 11:10 Shaan VARGAS TYPE: Emergency DIAGNOSES: - Epigastric pain - Abdominal Pain 03/13/2024 00:41 Shaan VARGSA TYPE: Emergency DIAGNOSES: - Periapical abscess without sinus - Dental Problem INPATIENT VISIT TRACKING (12 MO.) 11/20/2024 03:02 E[facility] Quan [place] TYPE: Critical Care DIAGNOSES: - Cerebral infarction, unspecified - Cutaneous abscess of left lower limb - long term care social worker (current) use of insulin - Other acute pancreatitis without necrosis or infection - Pure hyperglyceridemia - Tobacco use - Type 2 diabetes mellitus with hyperglycemia 11/17/2024 13:10 [facility] [place] TYPE: Critical Care COMPLAINT: - PANCREATITIS DIAGNOSES: - Acquired absence of other specified parts of digestive tract - Acquired absence of other specified parts of digestive tract - Acute pancreatitis without necrosis or infection, unspecified - Acute pancreatitis without necrosis or infection, unspecified - Arthrodesis status - Arthrodesis status - Cellulitis of right upper limb - Cellulitis of right upper limb - Cutaneous abscess of left lower limb - Cutaneous abscess of left lower limb - Gastro-esophageal reflux disease without esophagitis - Gastro-esophageal reflux disease without esophagitis - long term care social worker (current) use of insulin - long term care social worker (current) use of insulin - [facility] (current) use of oral hypoglycemic drugs - [facility] (current) use of oral hypoglycemic drugs - Nicotine dependence, cigarettes, uncomplicated - Nicotine dependence, cigarettes, uncomplicated - Obesity, unspecified - Obesity, unspecified - Other snf (current) drug therapy - Other intermediate card tender (current) drug therapy - Pure hyperglyceridemia - Type 2 diabetes mellitus without complications - Type 2 diabetes mellitus without complications [id number]
[2024-11-29] MEDS ORDERED: IBLOOD GLUCOSE TEST STRIP 1 EA TEST XX ONE (10:30)
[2024-11-29 10:48] LABS: BASOPHILS 0.4 % (0.2-1.2); EOSINOPHILS 5.4 % (0.8-7.0); LYMPHOCYTES 40.7 % (21.8-53.1); MCH 29.9 PG (25.7-32.2); MCHC 35.0 g/dL (32.3-36.5); MCV 85.5 fL (79.0-92.2); MONOCYTES 6.0 % (5.3-12.2); NEUTROPHILS 46.9 % (34.0-67.9); RBC 4.82 M/uL (4.63-6.08)
[2024-11-29 11:00] LABS: INR 0.86 (0.80-1.30); PROTIME 11.1 Sec (11.2-14.2)
[2024-11-29 11:05] LABS: ALT (SGPT) 44.0 U/L (14-59); GLOMERULAR FILTRATION RATE,EST 96.0 mL/min (>60); PROTEIN, TOTAL 7.1 g/dL (6.4-8.2); UREA NITROGEN 20.0 mg/dL (7-18)
[2024-11-29 11:40] LABS: AST (SGOT) 19.0 U/L (15-37)
[2024-11-29 12:36] VITALS: BP 115/90
[2024-11-29] MEDS ORDERED: LORazepam 1 MG TAB PO ONE (12:45)
--- NOTE | 2024-11-29 12:48 | NUR ---
Verbal order obtained from Dr. Maharaj for one time ativan 2mg po for mri study.
[2024-11-29 12:49] VITALS: BP 115/90
--- NOTE | 2024-11-29 12:50 | NUR ---
Patient arrived to the medical floor. Patient is alert and oriented x3, no acute distress. Patient reports left upper and lower ext's, patient transferred from er bed to unit bed independently. at bedside. Vital signs stable at this time. technical services librarian to room to take patient for mri. Patient reports anxiety, he is requesting medications for study. Dr. Maharaj placed order for ativan, medical imaging tech.
[2024-11-29] MEDS ORDERED: CLOPIDOGREL BISULFATE 75 MG TAB PO SCH (14:21)
--- NOTE | 2024-11-29 14:24 | NUR ---
RESTING IN BED. EYES CLOSED. DOES NOT WAKE TO KNOCK ON DOOR. WILL RETURN TO SPEAK WITH PATIENT
--- NOTE | 2024-11-29 16:01 | EKG ---
[facility] [address] [facility] [place], [place] [address] Signed Normal sinus rhythm Right axis deviation Nonspecific ST and T wave abnormality Abnormal ECG When compared with ECG of 15-NOV-2024 19:41, QRS axis shifted right Non-specific change in ST segment in Lateral leads Confirmed by JAIME DALY MD ([id number]) on 11/29/2024 4:01:41 PM Electronically Signed By: JAIME DALY 11/29/24 1601 PATIENT NAME: ELSYDILEEP Electrocardiogram DATE OF : 79 PHYSICIAN: JAIME DALY REPORT #: [id number] REPORT IS CONFIDENTIAL AND NOT TO BE RELEASED WITHOUT AUTHORIZATION
--- NOTE | 2024-11-29 16:43 | NUR ---
Patient called this RN to room. Patient reports he is "very anxious", he is requesting medication. Called Dr. Maharaj regarding patient concern/request, new order obtained for ativan 0.5mg iv once.
[2024-11-29] MEDS ORDERED: LORazepam 2 MG/ML VIAL IV ONE (16:45)
[2024-11-29] MEDS ORDERED: INSULIN LISPRO 100 UNIT/ML ML SUB-Q SCH (17:00)
[2024-11-29] MEDS ORDERED: IBLOOD GLUCOSE TEST STRIP 1 EA TEST VI SCH (17:00)
[2024-11-29 17:36] VITALS: BP 125/85
--- NOTE | 2024-11-29 17:38 | NUR ---
HOURLY ROUNDING. PATIENT IS SITTING IN BED, COMPLAINS OF BACK PAIN. NURSE HAS BEEN NOTIFIED. NO REQUEST FROM PATIENT AT THIS TIME. PATIENT IS AT BEDSIDE. CALL LIGHT HAS BEEN PLACED WITHIN REACH
[2024-11-29] MEDS ORDERED: GEMFIBROZIL600 MG PO (17:40)
[2024-11-29] MEDS ORDERED: METFORMIN HCL500 MG PO (17:42)
[2024-11-29] MEDS ORDERED: ADMELOG100 UNIT/1 SUB-Q (17:43)
[2024-11-29] MEDS ORDERED: OMEPRAZOLE40 MG PO (17:43)
[2024-11-29 17:46] VITALS: BP 125/85
--- NOTE | 2024-11-29 17:47 | NUR ---
medications reconciled with patient
--- NOTE | 2024-11-29 19:48 | NUR ---
RECEIVED REPORT FROM ROBERT HERMOSILLO. PATIENT IS RESTING IN BED WITH HIS SO. HE DENIES ANY NEEDS, RESPIRATIONS ARE EVEN AND UNLABORED. CALL LIGHT IN REACH.
[2024-11-29 20:33] VITALS: BP 118/81
--- NOTE | 2024-11-29 20:36 | NUR ---
TELEVISION PRESENTER OBTAINED VITALS AND I&O. PT REQUESTING SOMETHING FOR SLEEP. RN NOTIFED. PT STATES NO FURTHER NEEDS AT THIS TIME. CALL LIGHT WITHIN REACH.
[2024-11-29 21:13] VITALS: BP 118/81
--- NOTE | 2024-11-29 21:20 | NUR ---
SURVEY RESEARCH ASSOCIATE INFORMED RN THAT PATIENT WAS REQUESTING MEDICATION FOR SLEEP AND ANXIETY.
--- NOTE | 2024-11-29 21:25 | NUR ---
IN ROOM TO ASSESS PATIENT, PATIENT RESTING WITH EYES CLOSED UPON ENTERING THE ROOM, RESPIRATIONS EVEN AND UNLABORED. PATIENT WOKE TO RN SPEAKING. ASSESSMENT COMPLETE, SCHEDULED MEDICATIONS GIVEN PER ORDER. HE DENIES ANY FURTHER NEEDS, CALL LIGHT IN REACH.
--- NOTE | 2024-11-29 21:35 | NUR ---
TC TO PROVIDER TO INFORM OF PATIENT REQUEST FOR SLEEP MEDICATION AND ANXIETY MEDICATION. NEW ORDER RECEIVED.
--- NOTE | 2024-11-29 22:15 | NUR ---
SCHEDLED MEDICATION FOR SLEEP GIVEN TO PATIENT PER REQUEST AND PER ORDER. PATIENT SITTING COMFORTABLY IN ROOM WITH . HE DENIES ANY NEEDS, CALL LIGHT IN REACH.
--- NOTE | 2024-11-29 22:15 | NUR ---
EFFICIENCY ENGINEER IN ROOM TO FIX TELE LEADS. PT HAD REMOVED TELE AND STATED THAT HE WAS LEAVING. EFFICIENCY ENGINEER ASKED PT WHY HE WANTED TO LEAVE AND PT STATED " I ASKED MY NURSE FOR A SLEEP AID AND SHE TOLD ME NO. ITS NOT LIKE I ASKED FOR FUCKING MORPHINE" EFFICIENCY ENGINEER TOLD PT THAT HIS NURSE DID NOTIFY THE DR AND SHE WOULD BE IN SOON. PT CALMED DOWN AND ALLOWED THIS EFFICIENCY ENGINEER TO REATTACH TELE LEADS. PT STATES NO FURTHER NEEDS AT THIS TIME. CALL LIGHT WITHIN REACH.
--- NOTE | 2024-11-29 23:35 | NUR ---
ROUNDED ON PATIENT, PATIENT RESTING WITH EYES CLOSED RESPIRATIONS EVEN AND UNLABORED. NO NEEDS IDENTIFIED, CALL LIGHT IN REACH
--- NOTE | 2024-11-30 00:51 | NUR ---
ROUNDED ON PATIENT, PATIENT RESTING WITH EYES CLOSED, RESPIRATIONS EVEN AND UNLABORED. NO NEEDS IDENTIFIED, CALL LIGHT IN REACH
--- NOTE | 2024-11-30 02:26 | NUR ---
ROUNDED ON PATIENT, PATIENT RESTING WITH EYES CLOSED. RESPIRATIONS EVEN AND UNLABORED. NO NEEDS IDENTIFIED, CALL LIGHT IN REACH
[2024-11-30 02:36] VITALS: BP 130/87
[2024-11-30 02:37] VITALS: BP 130/87
--- NOTE | 2024-11-30 02:41 | NUR ---
CALL LIGHT ANSWERED, VS OBTAINED AND RECORDED, INTAKE AND OUTPUT DOCUMENTED. SNACK AND WARM BLANKET GIVEN TO PATIENT PER REQUEST. HE DENIES ANY OTHER NEEDS, CALL LIGHT IN REACH
--- NOTE | 2024-11-30 04:52 | NUR ---
ROUNDED ON PATIENT, PATIENT RESTING WITH EYES CLOSED ON HIS LEFT SIDE. RESPIRATIONS EVEN AND UNLABORED. NO NEEDS IDENTIFIED, CALL LIGHT IN REACH
[2024-11-30 05:11] VITALS: BP 129/89
[2024-11-30 05:20] VITALS: BP 129/89
--- NOTE | 2024-11-30 05:20 | NUR ---
CALL LIGHT ANSWERED, PATIENT UP TO RESTROOM. AMBULATORY WITHOUT ASSISTANCE. DECLINES USE OF WALKING CANE. PATIENT BACK TO BED WITHOUT DIFFICULTY. VS OBTAINED AND RECORDED. INTAKE AND OUTPUT DOCUMENTED. PATIENT DENIES ANY NEEDS, CALL LIGHT IN REACH
[2024-11-30 05:26] LABS: BASOPHILS 0.4 % (0.2-1.2); EOSINOPHILS 5.6 % (0.8-7.0); LYMPHOCYTES 44.1 % (21.8-53.1); MCH 29.0 PG (25.7-32.2); MCHC 34.0 g/dL (32.3-36.5); MCV 85.4 fL (79.0-92.2); MONOCYTES 7.7 % (5.3-12.2); NEUTROPHILS 41.4 % (34.0-67.9); RBC 4.72 M/uL (4.63-6.08)
[2024-11-30 05:38] LABS: GLOMERULAR FILTRATION RATE,EST 92.0 mL/min (>60); UREA NITROGEN 16.0 mg/dL (7-18)
--- NOTE | 2024-11-30 07:02 | NUR ---
RECIEVED REPORT FROM MANDA Pham RN. PT RESTING IN BED WITH EYES CLOSED. RR EVEN AND UNLABORED, CALL LIGHT AND PERSONAL BELONGINGS WITHIN REACH.
--- NOTE | 2024-11-30 08:33 | NUR ---
PATIENT IN BED AT THIS TIME. WIND OPERATIONS SUPERVISOR CHARTED HOURLY ROUNDS AND BLOODSUGAR. CALL LIGHT WITHIN REACH, NO FURTHER NEEDS.
[2024-11-30] MEDS ORDERED: PANTOPRAZOLE SODIUM 40 MG TABEC PO SCH (09:00)
[2024-11-30 09:46] VITALS: BP 136/84
--- NOTE | 2024-11-30 09:47 | NUR ---
PATIENT IN BED AT THIS TIME. JUDO TEACHER CHARTED VITALS AND I&OS'. CALL LIGHT WITHIN REACH, NO FURTHER NEEDS AT THIS TIME.
--- NOTE | 2024-11-30 09:48 | NUR ---
PATIENT ABLE TO INDEPENDENTLY BRUSH TEETH. CALL LIGHT WITHIN REACH, NO FURTHER NEEDS.
[2024-11-30] MEDS ORDERED: CLOPIDOGREL75 MG PO (09:52)
[2024-11-30 10:37] VITALS: BP 136/84
[2024-11-30] MEDS ORDERED: LIPITOR80 MG PO (10:41)
--- NOTE | 2024-11-30 10:45 | NUR ---
PT SITTING UP ON EDGE OF BED, VISITING WITH IN ROOM. PT'S TELE D/C'D PER D/C ORDER. PT WITH NO C/O PAIN. PT REPORTS N/T IN FEET AT BASELINE. PT IS ON RA. LUNGS SOUND CLEAR IN UPPER LOBES, AND DIMINISHED IN BASES BILATERALLY. PT IV SITE REMOVED, CATHETHER TIP IS INTACT. PT WITH NORMAL S1, S2 ON CARDIAC AUSCULTATION. PT STATED NO FURTHER NEEDS AND STATED THAT HE IS GOING TO GET DRESSED IN PREPARATION FOR D/C. CALL LIGHT AND PERSONAL BELONGINGS WITHIN REACH.
[2024-11-30] MEDS ORDERED: LANTUS SOL100 UNIT/1 SUB-Q (10:54)
--- NOTE | 2024-11-30 11:05 | NUR ---
PT AMBULATING IN HALLWAY WITH SIGNIFICANT OTHER.
--- NOTE | 2024-11-30 11:12 | NUR ---
INTO SEE PATIENT. PERSONAL HEALTH INFORMATION REVIEWED. PATIENT LIVES IN AN TRAILER WITH 3 STEPS INTO. PATIENT LIVES WITH . HAS BEEN USING A CANE HERE BUT DENIES ANY USE OF DME AT HOME. DRIVES. PATIENT RECENTLY MOVED HERE FROM [place]. NEEDS TO SIGN UP FOR [place]. CALLED ERICK TO SEE PATIENT. PATIENT HAS SIGNED UP FOR [employer] BENEFITS. OT SUGGESTED PATIENT GO TO [facility]. PATIENT REFUSED TO GO TO [facility]. PATIENT HAS REFUSED IPR DUE TO WANTING TO GO HOME. PATIENT WILL NEED TO SET UP PRIMARY CARE ONCE INSURANCE IS APPROVED. NO FUTHER CM NEEDS.
--- NOTE | 2024-11-30 11:57 | NUR ---
UR CLINICAL REVIEW: CATALINO, MEETS OBS FOR STROKE: ISCHEMIC NIH OF 5, NEED FOR MRI AND PT/OT EVAL, CARDIAC MONITORING NEURO ASSESSMENTS OOS PENDING ELIGIBILITY OBS 11/29/2024 @ 1207 ORDER MATCHES REG NO AUTH, INSURANCE ELIGIBILITY REMAINS PENDING PLAN TO DC TO HOME TODAY.
[2024-11-30] MEDS ORDERED: PHARMACY RENAL DOSE ADJUSTMENT 1 DOSE MISC PO SCH (12:00)
== END 2024-11-30 12:16 | disposition home or self-care (01) ==
LOC: ED 10:21 → MS 10:22
PROVIDERS: Emergency Medicine; ADMIT Internal Medicine; ATTEND Internal Medicine
DX: I63.9 Cerebral infarction, unspecified (principal); G81.94 Hemiplegia, unspecified affecting left nondominant side; E11.9 Type 2 diabetes mellitus without complications; E78.1 Pure hyperglyceridemia; K85.90 Acute pancreatitis without necrosis or infection, unspecified; E87.1 Hypo-osmolality and hyponatremia; F17.200 Nicotine dependence, unspecified, uncomplicated; R29.702 NIHSS score 2; E66.9 Obesity, unspecified; Z68.32 Body mass index [BMI] 32.0-32.9, adult; Z79.4 Long term (current) use of insulin; Z79.84 Long term (current) use of oral hypoglycemic drugs; Z79.899 Other long term (current) drug therapy
CPT/HCPCS: 36415; 70450; 70496; 70498; 70551; 71045; 80048; 80053; 80307; 83036; 83735; 84484; 85025; 85610; 85730; 93005; 93010; 96374; 97116; 97162; 97166; 97535; 99285-25; A9270; A9270-GY; G0378; J1815; J2060; Q3014; Q9967

== ENCOUNTER 2024-12-26 08:38 | Emergency (ER) | payer MEDICAID ==
[~2024-12-26] VITALS: Ht 182.9 cm; Wt 121.9 kg
--- OUTSIDE RECORDS SUMMARY | ~2024-12-26 | XMS | Continuity of Care Document ---
Demographics + + + | Address | [address] [facility] | | | [place] [address] | + + + | Preferred Language | Unknown | + + + | Marital Status | | + + + | Hoahaoism Affiliation | Unknown | + + + | Race | White | + + + | Ethnic Group | Unknown | + + + Author + + + | Author | [facility] | + + + | Organization | [facility] | + + + | Address | [address] | | | [place] [address] | + + + | Phone | | + + + Care Team Providers + + + + | Care Scleroscope Tester Name | Role | Phone | + + + + Unavailable | Unavailable | + + + + Allergies No information. Encounters No information. Functional Status No information. Immunizations No information. Medications No information. Problems No information. Procedures No information. Results/Labs +--------+--------+ +---------+--------+---------+ | test | date | facility | value | unit | notes | +--------+--------+ +---------+--------+---------+ + + | Result panel 1 | + + + + + +--------+ + + | | 2024-11-20 | [facility] | 0.0 | per 100 | (missing) | | NRBC.BLD.QN. | 01:37 | [facility] | | [facility] | | | AUTO (K/UL) | | Medical | | | | | | | Center | | | | + + + +--------+ + + | | 2024-11-20 | [facility] | 0.00 | k/ul | (missing) | | NRBC.BLD.QN. | 01:37 | [facility] | | | | | AUTO (K/UL) | | Medical | | | | | | | Center | | | | + + + +--------+ + + | | 2024-11-20 | [facility] | 0.01 | k/ul | (missing) | | NRBC.BLD.QN. | 01:37 | [facility] | | | | | AUTO (K/UL) | | Medical | | | | | | | Center | | | | + + + +--------+ + + | | 2024-11-20 | [facility] | 0.02 | k/ul | (missing) | | NRBC.BLD.QN. | 01:37 | [facility] | | | | | AUTO (K/UL) | | Medical | | | | | | | Center | | | | + + + +--------+ + + | | 2024-11-20 | [facility] | 0.19 | k/ul | (missing) | | NRBC.BLD.QN. | 01:37 | [facility] | | | | | AUTO (K/UL) | | Medical | | | | | | | Center | | | | + + + +--------+ + + | | 2024-11-20 | [facility] | 0.2 | % | (missing) | | NRBC.BLD.QN. | 01:37 | [facility] | | | | | AUTO (K/UL) | | Medical | | | | | | | Center | | | | + + + +--------+ + + | | 2024-11-20 | [facility] | 0.37 | k/ul | (missing) | | NRBC.BLD.QN. | 01:37 | [facility] | | | | | AUTO (K/UL) | | Medical | | | | | | | Center | | | | + + + +--------+ + + | | 2024-11-20 | [facility] | 0.4 | % | (missing) | | NRBC.BLD.QN. | 01:37 | [facility] | | | | | AUTO (K/UL) | | Medical | | | | | | | Center | | | | + + + +--------+ + + | EGFR | 2024-11-20 | [facility] | 0.5 | mg/dl | (missing) | | ML/MIN/1.73 | 01:37 | [facility] | | | | | SQ | | Medical | | | | | M.PREDICTED | | Center | | | | + + + +--------+ + + | EGFR | 2024-11-20 | [facility] | 0.9 | (missing) | (missing) | | ML/MIN/1.73 | 01:37 | [facility] | | | | | SQ | | Medical | | | | | M.PREDICTED | | Center | | | | + + + +--------+ + + | EGFR | 2024-11-20 | [facility] | 0.97 | mg/dl | (missing) | | ML/MIN/1.73 | 01:37 | [facility] | | | | | SQ | | Medical | | | | | M.PREDICTED | | Center | | | | + + + +--------+ + + | | 2024-11-20 | [facility] | 1.17 | k/ul | (missing) | | NRBC.BLD.QN. | 01:37 | [facility] | | | | | AUTO (K/UL) | | Medical | | | | | | | Center | | | | + + + +--------+ + + | | 2024-11-20 | [facility] | 1.6 | mg/dl | (missing) | | MAGNESIUM.SE | 01:37 | [facility] | | | | | R/PLAS.QN | | Medical | | | | | (MG/DL) | | Center | | | | + + + +--------+ + + | | 2024-11-20 | [facility] | 10.3 | fl | (missing) | | NRBC.BLD.QN. | 01:37 | [facility] | | | | | AUTO (K/UL) | | Medical | | | | | | | Center | | | | + + + +--------+ + + | EGFR | 2024-11-20 | [facility] | 100 | mmol/l | (missing) | | ML/MIN/1.73 | 01:37 | [facility] | | | | | SQ | | Medical | | | | | M.PREDICTED | | Center | | | | + + + +--------+ + + | | 2024-11-20 | [facility] | 13.3 | % | (missing) | | NRBC.BLD.QN. | 01:37 | [facility] | | | | | AUTO (K/UL) | | Medical | | | | | | | Center | | | | + + + +--------+ + + | | 2024-11-20 | [facility] | 13.5 | g/dl | (missing) | | NRBC.BLD.QN. | 01:37 | [facility] | | | | | AUTO (K/UL) | | Medical | | | | | | | Center | | | | + + + +--------+ + + | EGFR | 2024-11-20 | [facility] | 133 | mmol/l | (missing) | | ML/MIN/1.73 | 01:37 | [facility] | | | | | SQ | | Medical | | | | | M.PREDICTED | | Center | | | | + + + +--------+ + + | | 2024-11-20 | [facility] | 156 | k/ul | (missing) | | NRBC.BLD.QN. | 01:37 | [facility] | | | | | AUTO (K/UL) | | Medical | | | | | | | Center | | | | + + + +--------+ + + | | 2024-11-20 | [facility] | 2.2 | mg/dl | Sample | | PHOSPHORUS.S | 01:37 | [facility] | | | lipemic,resu | | ER/PLAS.QN | | Medical | | | lt may be | | (MG/DL) | | Center | | | affected. | + + + +--------+ + + | EGFR | 2024-11-20 | [facility] | 2.9 | g/dl | (missing) | | ML/MIN/1.73 | 01:37 | [facility] | | | | | SQ | | Medical | | | | | M.PREDICTED | | Center | | | | + + + +--------+ + + | EGFR | 2024-11-20 | [facility] | 211 | mg/dl | Diagnostic | | ML/MIN/1.73 | 01:37 | [facility] | | | Categories | | SQ | | Medical | | | (per ADA): | | M.PREDICTED | | Center | | | Fasting: < | | | | | | | 100 mg/dL = | | | | | | | Normal 100 | | | | | | | to 125 mg/dL | | | | | | | = IFG | | | | | | | (Impaired | | | | | | | Fasting | | | | | | | Glucose) >/= | | | | | | | 126 mg/dL = | | | | | | | Diagnosis | | | | | | | of | | | | | | | Diabetes.* 2 | | | | | | | Hr OGTT: < | | | | | | | 140 mg/dL = | | | | | | | Normal 140 | | | | | | | to 199 mg/dL | | | | | | | = IGT | | | | | | | (Impaired | | | | | | | Glucose | | | | | | | Tolerance) | | | | | | | >/= 200 | | | | | | | mg/dL = | | | | | | | Diagnosis of | | | | | | | Diabetes.* | | | | | | | * In the | | | | | | | absence of | | | | | | | unequivocal | | | | | | | hyperglycemi | | | | | | | a, results | | | | | | | should be | | | | | | | confirmed by | | | | | | | repeat | | | | | | | testing. In | | | | | | | Pediatric | | | | | | | patients, | | | | | | | type 1 | | | | | | | diabetes is | | | | | | | more common | | | | | | | and may | | | | | | | warrant more | | | | | | | immediate | | | | | | | attention. | + + + +--------+ + + | | 2024-11-20 | [facility] | 23.9 | % | (missing) | | NRBC.BLD.QN. | 01:37 | [facility] | | | | | AUTO (K/UL) | | Medical | | | | | | | Center | | | | + + + +--------+ + + | EGFR | 2024-11-20 | [facility] | 25 | mmol/l | (missing) | | ML/MIN/1.73 | 01:37 | [facility] | | | | | SQ | | Medical | | | | | M.PREDICTED | | Center | | | | + + + +--------+ + + | | 2024-11-20 | [facility] | 29.8 | pg | (missing) | | NRBC.BLD.QN. | 01:37 | [facility] | | | | | AUTO (K/UL) | | Medical | | | | | | | Center | | | | + + + +--------+ + + | | 2024-11-20 | [facility] | 3.14 | k/ul | (missing) | | NRBC.BLD.QN. | 01:37 | [facility] | | | | | AUTO (K/UL) | | Medical | | | | | | | Center | | | | + + + +--------+ + + | EGFR | 2024-11-20 | [facility] | 3.2 | g/dl | (missing) | | ML/MIN/1.73 | 01:37 | [facility] | | | | | SQ | | Medical | | | | | M.PREDICTED | | Center | | | | + + + +--------+ + + | | 2024-11-20 | [facility] | 3.9 | % | (missing) | | NRBC.BLD.QN. | 01:37 | [facility] | | | | | AUTO (K/UL) | | Medical | | | | | | | Center | | | | + + + +--------+ + + | EGFR | 2024-11-20 | [facility] | 32 | u/l | (missing) | | ML/MIN/1.73 | 01:37 | [facility] | | | | | SQ | | Medical | | | | | M.PREDICTED | | Center | | | | + + + +--------+ + + | | 2024-11-20 | [facility] | 34.4 | g/dl | (missing) | | NRBC.BLD.QN. | 01:37 | [facility] | | | | | AUTO (K/UL) | | Medical | | | | | | | Center | | | | + + + +--------+ + + | | 2024-11-20 | [facility] | 39.3 | % | (missing) | | NRBC.BLD.QN. | 01:37 | [facility] | | | | | AUTO (K/UL) | | Medical | | | | | | | Center | | | | + + + +--------+ + + | EGFR | 2024-11-20 | [facility] | 4.0 | mmol/l | (missing) | | ML/MIN/1.73 | 01:37 | [facility] | | | | | SQ | | Medical | | | | | M.PREDICTED | | Center | | | | + + + +--------+ + + | | 2024-11-20 | [facility] | 4.53 | m/ul | (missing) | | NRBC.BLD.QN. | 01:37 | [facility] | | | | | AUTO (K/UL) | | Medical | | | | | | | Center | | | | + + + +--------+ + + | | 2024-11-20 | [facility] | 4.90 | k/ul | (missing) | | NRBC.BLD.QN. | 01:37 | [facility] | | | | | AUTO (K/UL) | | Medical | | | | | | | Center | | | | + + + +--------+ + + | EGFR | 2024-11-20 | [facility] | 41 | u/l | (missing) | | ML/MIN/1.73 | 01:37 | [facility] | | | | | SQ | | Medical | | | | | M.PREDICTED | | Center | | | | + + + +--------+ + + | | 2024-11-20 | [facility] | 42.2 | fl | (missing) | | NRBC.BLD.QN. | 01:37 | [facility] | | | | | AUTO (K/UL) | | Medical | | | | | | | Center | | | | + + + +--------+ + + | EGFR | 2024-11-20 | [facility] | 6.1 | g/dl | (missing) | | ML/MIN/1.73 | 01:37 | [facility] | | | | | SQ | | Medical | | | | | M.PREDICTED | | Center | | | | + + + +--------+ + + | | 2024-11-20 | [facility] | 64.0 | % | (missing) | | NRBC.EDVIN.ZechariahN. | 01:37 | [facility] | | | | | AUTO (K/UL) | | Medical | | | | | | | Center | | | | + + + +--------+ + + | EGFR | 2024-11-20 | [facility] | 69 | u/l | (missing) | | ML/MIN/1.73 | 01:37 | [facility] | | | | | SQ | | Medical | | | | | M.PREDICTED | | Center | | | | + + + +--------+ + + | | 2024-11-20 | [facility] | 7.6 | % | (missing) | | NRBC.BLD.QN. | 01:37 | [facility] | | | | | AUTO (K/UL) | | Medical | | | | | | | Center | | | | + + + +--------+ + + | EGFR | 2024-11-20 | [facility] | 8 | mg/dl | (missing) | | ML/MIN/ | 01:37 | [facility] | | | | | SQ | | Medical | | | | | M.PREDICTED | | Center | | | | + + + +--------+ + + | EGFR | 2024-11-20 | [facility] | 8 | mmol/l | (missing) | | ML/MIN/ | 01:37 | [facility] | | | | | SQ | | Medical | | | | | M.PREDICTED | | Center | | | | + + + +--------+ + + | EGFR | 2024-11-20 | [facility] | 8.2 | (missing) | (missing) | | ML/MIN/ | 01:37 | [facility] | | | | | SQ | | Medical | | | | | M.PREDICTED | | Center | | | | + + + +--------+ + + | EGFR | 2024-11-20 | [facility] | 8.7 | mg/dl | (missing) | | ML/MIN/1.73 | 01:37 | [facility] | | | | | SQ | | Medical | | | | | M.PREDICTED | | Center | | | | + + + +--------+ + + | | 2024-11-20 | [facility] | 86.8 | fl | (missing) | | NRBC.BLD.QN. | 01:37 | [facility] | | | | | AUTO (K/UL) | | Medical | | | | | | | Center | | | | + + + +--------+ + + | EGFR | 2024-11-20 | [facility] | 97 | | GFR value | | ML/MIN/1.73 | 01:37 | [facility] | | ml/min/1.73m | was | | SQ | | Medical | | 2 | calculated | | M.PREDICTED | | Center | | | using a new | | | | | | | GFR equation | | | | | | | effective | | | | | | | since | | | | | | | 04/15/21. | | | | | | | This is a | | | | | | | recommendati | | | | | | | on of the | | | | | | | [place] | | | | | | | Society of | | | | | | | Nephrology | | | | | | | and National | | | | | | | Kidney | | | | | | | Foundation. | | | | | | | Clinical | | | | | | | practice | | | | | | | guidelines | | | | | | | suggest the | | | | | | | use of serum | | | | | | | cystatin C | | | | | | | as a | | | | | | | confirmatory | | | | | | | test for | | | | | | | eGFR 45-59 | | | | | | | ml/min/1.73m | | | | | | | 2 in adults | | | | | | | who do not | | | | | | | have markers | | | | | | | of kidney | | | | | | | disease; | | | | | | | eGFR may be | | | | | | | less | | | | | | | accurate in | | | | | | | this range. | + + + +--------+ + + + + | Result panel 2 | + + + + + +-------+---------+ + | POC | 2024-11-20 | [facility] | 219 | mg/dl | Glu2: | | GLUCOSE.BLD. | 03:17 | [facility] | | | Notify MD / | | QN (MG/DL) | | Medical | | | RN Follow | | | | Center | | | Order Set | + + + +-------+---------+ + + + | Result panel 3 | + + + + + + + + + | LDL | 2024-11-20 | [facility] | 2193 | mg/dl | Results | | CALCULATION | 04:00 | [facility] | | | confirmed on | | COMMENT | | Medical | | | dilution. | | (REF): | | Center | | | | + + + + + + + | LDL | 2024-11-20 | [facility] | 22 | mg/dl | (missing) | | CALCULATION | 04:00 | [facility] | | | | | COMMENT | | Medical | | | | | (REF): | | Center | | | | + + + + + + + | LDL | 2024-11-20 | [facility] | 753 | mg/dl | Performed | | CALCULATION | 04:00 | [facility] | | | at: 01 - | | COMMENT | | Medical | | | [facility] | | (REF): | | Center | | | [place] | | | | | | | [address] | | | | | | [address] | | | | | | | [address], | | | | | | | [place], [place] | | | | | | | [phone] | | | | | | | Lab | | | | | | | Director: | | | | | | | [place] | | | | | | | Yanna MD, | | | | | | | Phone: | | | | | | | [phone] | + + + + + + + | LDL | 2024-11-20 | [facility] | Comment | (missing) | In the | | CALCULATION | 04:00 | [facility] | | | absence of | | COMMENT | | Medical | | | the LDL-c | | (REF): | | Center | | | value, if | | | | | | | the Total | | | | | | | Cholesterol | | | | | | | (TC) is >260 | | | | | | | mg/dL for | | | | | | | those <16 | | | | | | | years old or | | | | | | | >290 for | | | | | | | those >/=16 | | | | | | | years old, | | | | | | | consider | | | | | | | evaluating | | | | | | | for Familial | | | | | | | | | | | | | | Hypercholest | | | | | | | erolemia(FH) | | | | | | | if | | | | | | | clinically | | | | | | | indicated. | | | | | | | If the TC is | | | | | | | below these | | | | | | | limits, the | | | | | | | probability | | | | | | | of FH | | | | | | | cannot be | | | | | | | determined. | + + + + + + + | LDL | 2024-11-20 | [facility] | Comment | mg/dl | The | | CALCULATION | 04:00 | [facility] | | | calculation | | COMMENT | | Medical | | | for the VLDL | | (REF): | | Center | | | cholesterol | | | | | | | is not | | | | | | | valid when | | | | | | | triglyceride | | | | | | | level is | | | | | | | >800 mg/dL. | + + + + + + + | LDL | 2024-11-20 | [facility] | Comment | mg/dl | Triglyceride | | CALCULATION | 04:00 | [facility] | | | result | | COMMENT | | Medical | | | indicated is | | (REF): | | Center | | | too high | | | | | | | for an | | | | | | | accurate LDL | | | | | | | cholesterol | | | | | | | estimation. | + + + + + + + + + | Result panel 4 | + + + + + +------+-------+ + | | 2024-11-20 | [facility] | 21 | u/l | (missing) | | LIPASE.SER/P | 04:04 | [facility] | | | | | LAS.QN (U/L) | | Medical | | | | | | | Center | | | | + + + +------+-------+ + + + | Result panel 5 | + + + + + +--------+---------+ + | ESTIMATED | 2024-11-20 | [facility] | 13.8 | % | Performed | | AVERAGE | 06:21 | [facility] | | | at: 01 - | | GLUCOSE.BLOO | | Medical | | | [facility] | | D.QN (REF) | | Center | | | [facility] | | | | | | | [address] | | | | | | | [address] | | | | | | | [address], | | | | | | | [place], [place] | | | | | | | [phone] | | | | | | | Lab | | | | | | | Director: | | | | | | | [place] | | | | | | | Yanna QUINONES, | | | | | | | Phone: | | | | | | | [phone] | | | | | | | Prediabetes: | | | | | | | 5.7 - 6.4 | | | | | | | Diabetes: | | | | | | | >6.4 | | | | | | | Glycemic | | | | | | | control for | | | | | | | adults with | | | | | | | diabetes: | | | | | | | <7.0 | + + + +--------+---------+ + | ESTIMATED | 2024-11-20 | [facility] | 349 | mg/dl | (missing) | | AVERAGE | 06:21 | [facility] | | | | | GLUCOSE.BLOO | | Medical | | | | | D.QN (REF) | | Center | | | | + + + +--------+---------+ + + + | Result panel 6 | + + + + + +-------+---------+ + | POC | 2024-11-20 | [facility] | 231 | mg/dl | Glu2: | | GLUCOSE.BLD. | 08:03 | [facility] | | | Follow Order | | QN (MG/DL) | | Medical | | | Set | | | | Center | | | | + + + +-------+---------+ + + + | Result panel 7 | + + + + + +-------+---------+ + | POC | 2024-11-20 | [facility] | 214 | mg/dl | Glu2: | | GLUCOSE.BLD. | 12:02 | [facility] | | | Follow Order | | QN (MG/DL) | | Medical | | | Set Notify | | | | Center | | | MD / RN | + + + +-------+---------+ + + + | Result panel 8 | + + + + + + + + + | MRSA SCREEN | 2024-11-20 | [facility] | Negative | (missing) | Performed | | | 15:30 | [facility] | | | at: 01 - | | | | Medical | | | [facility] | | | | [place] | | | [facility] | | | | | | | [address] | | | [address] | | [address] | | | | | | | [address], | | | | | | | [place], [place] | | | | | | | [phone] | | | | | | | Lab | | | | | | | Director: | | | | | | | [place] | | | | | | | Yanna QUINONES, | | | | | | | Phone: | | | | | | | [phone] | + + + + + + + + + | Result panel 9 | + + + + + +-------+---------+ + | POC | 2024-11-20 | [facility] | 278 | mg/dl | Glu2: | | GLUCOSE.BLD. | 16:51 | [facility] | | | Notify MD / | | QN (MG/DL) | | Medical | | | RN Follow | | | | Center | | | Order Set | + + + +-------+---------+ + Social History +--------+ + + | date | description | facility | +--------+ + + Vital Signs No information."
[~2024-12-26 08:38] MED LIST changes: +CLOPIDOGREL75 MG PO; +GEMFIBROZIL600 MG PO; +LANTUS SOL100 UNIT/1 SUB-Q; +LIPITOR80 MG PO; +OMEPRAZOLE40 MG PO
--- OUTSIDE RECORDS SUMMARY | 2024-12-26 08:39 | XMS ---
PreManage Notification: DILEEP CHIN Security Level Vial Grinder Events No recent Security Events currently on file CRITERIA MET - 6 ED Visits in 6 Months - [facility] - 2 Visits in 30 Days CARE PROVIDERS There are no care providers on record at this time. [facility] has no Care Guidelines for this patient. Sid VISIT COUNT (12 MO.) 6 [facility] TOTAL 8 NOTE: Visits indicate total known visits. ED/UCC VISIT TRACKING (12 MO.) [facility] COMPLAINT: - ABDOMINAL PAIN 11/29/2024 10:21 [facility] [place] TYPE: Emergency COMPLAINT: - FACIAL NUMBNESS 11/17/2024 07:54 [facility] [place] TYPE: Emergency COMPLAINT: - ABDOMINAL PAIN 11/15/2024 18:50 [facility] [place] TYPE: Emergency COMPLAINT: - BLOOD SUGAR PROBLEM DIAGNOSES: - Gastro-esophageal reflux disease without esophagitis - shelter (current) use of insulin - Nicotine dependence, unspecified, uncomplicated - Other long chain quiller tender (current) drug therapy - Pure hypercholesterolemia, unspecified - Type 2 diabetes mellitus with hyperglycemia - Type 2 diabetes mellitus without complications 09/27/2024 12:07 [facility] [place] TYPE: Emergency COMPLAINT: - FLANK PIAN DIAGNOSES: - Gastro-esophageal reflux disease without esophagitis - shelter (current) use of insulin - Nicotine dependence, unspecified, uncomplicated - Other prison (current) drug therapy - Pure hypercholesterolemia, unspecified - Type 2 diabetes mellitus without complications - Unspecified abdominal pain 09/26/2024 09:08 [facility] TYPE: Emergency COMPLAINT: - ABDOMINAL PAIN DIAGNOSES: - Acquired absence of other specified parts of digestive tract - Gastro-esophageal reflux disease without esophagitis - medical terminologist (current) use of insulin - Nicotine dependence, unspecified, uncomplicated - Other long chain quiller tender (current) drug therapy - Personal history of other diseases of the digestive system - Pure hypercholesterolemia, unspecified - Unspecified abdominal pain 03/18/2024 11:10 [facility] TYPE: Emergency DIAGNOSES: - Epigastric pain - Abdominal Pain 03/13/2024 00:41 [facility] TYPE: Emergency DIAGNOSES: - Periapical abscess without sinus - Dental Problem INPATIENT VISIT TRACKING (12 MO.) 11/29/2024 10:22 [facility] [place] TYPE: Observation COMPLAINT: - LEFT SIDED WEAKNESS DIAGNOSES: - Acute pancreatitis without necrosis or infection, unspecified - Body mass index [BMI] 32.0-32.9, adult - Cerebral infarction, unspecified - Hemiplegia, unspecified affecting left nondominant side - Hypo-osmolality and hyponatremia - shelter (current) use of insulin - shelter (current) use of oral hypoglycemic drugs - Nicotine dependence, unspecified, uncomplicated - NIHSS score 2 - Obesity, unspecified - Other long chain quiller tender (current) drug therapy - Pure hyperglyceridemia - Type 2 diabetes mellitus without complications 11/20/2024 03:02 [facility] [place] TYPE: Critical Care DIAGNOSES: - Cerebral infarction, unspecified - Cutaneous abscess of left lower limb - medical terminologist (current) use of insulin - Other acute pancreatitis without necrosis or infection - Pure hyperglyceridemia - Tobacco use - Type 2 diabetes mellitus with hyperglycemia 11/17/2024 13:[address] [facility] [place] TYPE: Critical Care COMPLAINT: - PANCREATITIS [...] - Gastro-esophageal reflux disease without esophagitis - medical terminologist (current) use of insulin - shelter (current) use of insulin - shelter (current) use of oral hypoglycemic drugs - medical terminologist (current) use of oral hypoglycemic drugs - Nicotine dependence, cigarettes, uncomplicated - Nicotine dependence, cigarettes, uncomplicated - Obesity, unspecified - Obesity, unspecified - Other long chain quiller tender (current) drug therapy - Other prison (current) drug therapy - Pure hyperglyceridemia - Type 2 diabetes mellitus without complications - Type 2 diabetes mellitus without complications [email or web address]
[2024-12-26 09:10] LABS: BASOPHILS 0.4 % (0.2-1.2); EOSINOPHILS 4.4 % (0.8-7.0); LYMPHOCYTES 32.7 % (21.8-53.1); MCH 29.8 PG (25.7-32.2); MCHC 35.5 g/dL (32.3-36.5); MCV 84.0 fL (79.0-92.2); MONOCYTES 6.1 % (5.3-12.2); NEUTROPHILS 55.8 % (34.0-67.9); RBC 5.50 M/uL (4.63-6.08)
[2024-12-26 09:10] LABS: BLOOD/HGB, URINE TRACE-I (Negative); KETONE, URINE TRACE (Negative); LEUK ESTERASE, URINE NEGATIVE (negative); NITRITE, URINE NEGATIVE (negative)
[2024-12-26] MEDS ORDERED: OXYCODONE/APAP 5/325 TAB PO ONE (09:15)
[2024-12-26] MEDS ORDERED: ONDANSETRON 4 MG TAB ODT SL ONE (09:15)
[2024-12-26 09:16] LABS: BACTERIA, URINE NONE SEEN /hpf (negative); CASTS, URINE NONE SEEN \\lpf; CRYSTALS, URINE NONE SEEN (0-1+); EPITHELIAL CELLS, URINE SQUAMOUS 1+ /lpf (0-1+); REFLEX CULTURE, URINE No (No)
[2024-12-26 09:26] LABS: GLOMERULAR FILTRATION RATE,EST 106.0 mL/min (>60); PROTEIN, TOTAL 8.0 g/dL (6.4-8.2); UREA NITROGEN 15.0 mg/dL (7-18)
[2024-12-26 09:56] LABS: ALT (SGPT) 25.0 U/L (14-59); AST (SGOT) 16.0 U/L (15-37)
[2024-12-26] MEDS ORDERED: GEMFIBROZIL600 MG PO (10:14)
[2024-12-26] MEDS ORDERED: HYDROCODON-ACE1 EA10 PO (10:14)
[2024-12-26] MEDS ORDERED: ONDANSETRON ODT4 MG PO (10:14)
[2024-12-26] MEDS ORDERED: MORPHINE SULFATE 4 MG/ML VIAL IV ONE (10:15)
[2024-12-26 10:46] VITALS: BP 131/82
== END 2024-12-26 10:46 | disposition home or self-care (01) ==
LOC: ED 08:38
PROVIDERS: Emergency Medicine
DX: K85.90 Acute pancreatitis without necrosis or infection, unspecified (principal); E11.65 Type 2 diabetes mellitus with hyperglycemia; E78.1 Pure hyperglyceridemia; K21.9 Gastro-esophageal reflux disease without esophagitis; F17.200 Nicotine dependence, unspecified, uncomplicated; Z86.73 Personal history of transient ischemic attack (TIA), and cerebral infarction without residual deficits; Z79.02 Long term (current) use of antithrombotics/antiplatelets; Z79.4 Long term (current) use of insulin; Z79.899 Other long term (current) drug therapy
CPT/HCPCS: 36415; 80053; 81001; 83690; 85025; 96374; 96375; 99284-25; J2270; J2405

== ENCOUNTER 2025-02-05 09:47 | Emergency (ER) | payer OTHER ==
[~2025-02-05] VITALS: Ht 182.9 cm; Wt 121.8 kg
--- OUTSIDE RECORDS SUMMARY | ~2025-02-05 | XMS | Continuity of Care Document ---
Demographics + + + | Address | [address] | | | [place] [address] | + + + | Preferred Language | Unknown | + + + | Marital Status | | + + + | Restorationist Affiliation | Unknown | + + + | Race | White | + + + | Ethnic Group | Unknown | + + + Author + + + | Author | [facility] | + + + | Organization | [facility] | + + + | Address | [address] | | | [place] [address] | + + + | Phone | | + + + Care Team Providers + + + + | Care Kitchen Supervisor Name | Role | Phone | + [...] +--------+ + + | | 2024-11-20 | [facility] | 0.0 | per 100 | (missing) | | NRBC.BLD.QN. | 01:37 | [facility] | | [facility] | | | AUTO (K/UL) | | Medical | | | | | | | Center | | | | + + + +--------+ + + | | 2024-11-20 | [facility] | 0.00 | k/ul | (missing) | | NRBC.BLD.QN. | 01:37 | [facility] | | | | | AUTO (K/UL) | | Medical | | | | | | | Center | | | | + + + +--------+ + + | | 2024-11-20 | [facility] | 0.01 | k/ul | (missing) | | NRBC.BLD.QN. | 01:37 | [facility] | | | | | AUTO (K/UL) | | Medical | | | | | | | Center | | | | + + + +--------+ + + | | 2024-11-20 | [facility] | 0.02 | k/ul | (missing) | | NRBC.BLD.QN. | 01:37 | [facility] | | | | | AUTO (K/UL) | | Medical | | | | | | | Center | | | | + + + +--------+ + + | | 2024-11-20 | [facility] | 0.19 | k/ul | (missing) | | NRBC.BLD.QN. | 01:37 | [facility] | | | | | AUTO (K/UL) | | Medical | | | | | | | Center | | | | + + + +--------+ + + | | 2024-11-20 | [facility] | 0.2 | % | (missing) | | NRBC.BLD.QN. | 01:37 | [facility] | | | | | AUTO (K/UL) | | Medical | | | | | | | Center | | | | + + + +--------+ + + | | 2024-11-20 | [facility] | 0.37 | k/ul | (missing) | | NRBC.BLD.QN. | 01:37 | [facility] | | | | | AUTO (K/UL) | | Medical | | | | | | | Center | | | | + + + +--------+ + + | | 2024-11-20 | [facility] | 0.4 | % | (missing) | | NRBC.BLD.QN. | 01:37 | [facility] | | | | | AUTO (K/UL) | | Medical | | | | | | | Center | | | | + + + +--------+ + + | EGFR | 2024-11-20 | [facility] | 0.5 | mg/dl | (missing) | | ML/MIN/1.73 | 01:37 | [facility] | | | | | SQ | | Medical | | | | | M.PREDICTED | | Center | | | | + + + +--------+ + + | EGFR | 2024-11-20 | [facility] | 0.9 | (missing) | (missing) | | ML/MIN/1.73 | 01:37 | [facility] | | | | | SQ | | Medical | | | | | M.PREDICTED | | Center | | | | + + + +--------+ + + | EGFR | 2024-11-20 | [facility] | 0.97 | mg/dl | (missing) | | ML/MIN/1.73 | 01:37 | [facility] | | | | | SQ | | Medical | | | | | M.PREDICTED | | Center | | | | + + + +--------+ + + | | 2024-11-20 | [facility] | 1.17 | k/ul | (missing) | | NRBC.BLD.QN. | 01:37 | [facility] | | | | | AUTO (K/UL) | | Medical | | | | | | | Center | | | | + + + +--------+ + + | | 2024-11-20 | [facility] | 1.6 | mg/dl | (missing) | | MAGNESIUM.SE | 01:37 | [facility] | | | | | R/PLAS.QN | | Medical | | | | | (MG/DL) | | Center | | | | + + + +--------+ + + | | 2024-11-20 | [facility] | 10.3 | fl | (missing) | | NRBC.BLD.QN. | 01:37 | [facility] | | | | | AUTO (K/UL) | | Medical | | | | | | | Center | | | | + + + +--------+ + + | EGFR | 2024-11-20 | [facility] | 100 | mmol/l | (missing) | | ML/MIN/1.73 | 01:37 | [facility] | | | | | SQ | | Medical | | | | | M.PREDICTED | | Center | | | | + + + +--------+ + + | | 2024-11-20 | [facility] | 13.3 | % | (missing) | | NRBC.BLD.QN. | 01:37 | [facility] | | | | | AUTO (K/UL) | | Medical | | | | | | | Center | | | | + + + +--------+ + + | | 2024-11-20 | [facility] | 13.5 | g/dl | (missing) | | NRBC.BLD.QN. | 01:37 | [facility] | | | | | AUTO (K/UL) | | Medical | | | | | | | Center | | | | + + + +--------+ + + | EGFR | 2024-11-20 | [facility] | 133 | mmol/l | (missing) | | ML/MIN/1.73 | 01:37 | [facility] | | | | | SQ | | Medical | | | | | M.PREDICTED | | Center | | | | + + + +--------+ + + | | 2024-11-20 | [facility] | 156 | k/ul | (missing) | | NRBC.BLD.QN. | 01:37 | [facility] | | | | | AUTO (K/UL) | | Medical | | | | | | | Center | | | | + + + +--------+ + + | | 2024-11-20 | [facility] | 2.2 | mg/dl | Sample | | PHOSPHORUS.S | 01:37 | [facility] | | | lipemic,resu | | ER/PLAS.QN | | Medical | | | lt may be | | (MG/DL) | | Center | | | affected. | + + + +--------+ + + | EGFR | 2024-11-20 | [facility] | 2.9 | g/dl | (missing) | | ML/MIN/1.73 | 01:37 | [facility] | | | | | SQ | | Medical | | | | | M.PREDICTED | | Center | | | | + + + +--------+ + + | EGFR | 2024-11-20 | [facility] | 211 | mg/dl | Diagnostic | | ML/MIN/1.73 | 01:37 | [facility] | | | Categories | | SQ [...] +--------+ + + | | 2024-11-20 | [facility] | 23.9 | % | (missing) | | NRBC.BLD.QN. | 01:37 | [facility] | | | | | AUTO (K/UL) | | Medical | | | | | | | Center | | | | + + + +--------+ + + | EGFR | 2024-11-20 | [facility] | 25 | mmol/l | (missing) | | ML/MIN/1.73 | 01:37 | [facility] | | | | | SQ | | Medical | | | | | M.PREDICTED | | Center | | | | + + + +--------+ + + | | 2024-11-20 | [facility] | 29.8 | pg | (missing) | | NRBC.BLD.QN. | 01:37 | [facility] | | | | | AUTO (K/UL) | | Medical | | | | | | | Center | | | | + + + +--------+ + + | | 2024-11-20 | [facility] | 3.14 | k/ul | (missing) | | NRBC.BLD.QN. | 01:37 | [facility] | | | | | AUTO (K/UL) | | Medical | | | | | | | Center | | | | + + + +--------+ + + | EGFR | 2024-11-20 | [facility] | 3.2 | g/dl | (missing) | | ML/MIN/1.73 | 01:37 | [facility] | | | | | SQ | | Medical | | | | | M.PREDICTED | | Center | | | | + + + +--------+ + + | | 2024-11-20 | [facility] | 3.9 | % | (missing) | | NRBC.BLD.QN. | 01:37 | [facility] | | | | | AUTO (K/UL) | | Medical | | | | | | | Center | | | | + + + +--------+ + + | EGFR | 2024-11-20 | [facility] | 32 | u/l | (missing) | | ML/MIN/1.73 | 01:37 | [facility] | | | | | SQ | | Medical | | | | | M.PREDICTED | | Center | | | | + + + +--------+ + + | | 2024-11-20 | [facility] | 34.4 | g/dl | (missing) | | NRBC.BLD.QN. | 01:37 | [facility] | | | | | AUTO (K/UL) | | Medical | | | | | | | Center | | | | + + + +--------+ + + | | 2024-11-20 | [facility] | 39.3 | % | (missing) | | NRBC.BLD.QN. | 01:37 | [facility] | | | | | AUTO (K/UL) | | Medical | | | | | | | Center | | | | + + + +--------+ + + | EGFR | 2024-11-20 | [facility] | 4.0 | mmol/l | (missing) | | ML/MIN/1.73 | 01:37 | [facility] | | | | | SQ | | Medical | | | | | M.PREDICTED | | Center | | | | + + + +--------+ + + | | 2024-11-20 | [facility] | 4.53 | m/ul | (missing) | | NRBC.BLD.QN. | 01:37 | [facility] | | | | | AUTO (K/UL) | | Medical | | | | | | | Center | | | | + + + +--------+ + + | | 2024-11-20 | [facility] | 4.90 | k/ul | (missing) | | NRBC.BLD.QN. | 01:37 | [facility] | | | | | AUTO (K/UL) | | Medical | | | | | | | Center | | | | + + + +--------+ + + | EGFR | 2024-11-20 | [facility] | 41 | u/l | (missing) | | ML/MIN/1.73 | 01:37 | [facility] | | | | | SQ | | Medical | | | | | M.PREDICTED | | Center | | | | + + + +--------+ + + | | 2024-11-20 | [facility] | 42.2 | fl | (missing) | | NRBC.BLD.QN. | 01:37 | [facility] | | | | | AUTO (K/UL) | | Medical | | | | | | | Center | | | | + + + +--------+ + + | EGFR | 2024-11-20 | [facility] | 6.1 | g/dl | (missing) | | ML/MIN/1.73 | 01:37 | [facility] | | | | | SQ | | Medical | | | | | M.PREDICTED | | Center | | | | + + + +--------+ + + | | 2024-11-20 | [facility] | 64.0 | % | (missing) | | NRBC.BLD.QN. | 01:37 | [facility] | | | | | AUTO (K/UL) | | Medical | | | | | | | Center | | | | + + + +--------+ + + | EGFR | 2024-11-20 | [facility] | 69 | u/l | (missing) | | ML/MIN/1.73 | 01:37 | [facility] | | | | | SQ | | Medical | | | | | M.PREDICTED | | Center | | | | + + + +--------+ + + | | 2024-11-20 | [facility] | 7.6 | % | (missing) | | NRBC.BLD.QN. | 01:37 | [facility] | | | | | AUTO (K/UL) | | Medical | | | | | | | Center | | | | + + + +--------+ + + | EGFR | 2024-11-20 | [facility] | 8 | mg/dl | (missing) | | ML/MIN/1 | 01:37 | [facility] | | | | | SQ | | Medical | | | | | M.PREDICTED | | Center | | | | + + + +--------+ + + | EGFR | 2024-11-20 | [facility] | 8 | mmol/l | (missing) | | ML/MIN/ | 01:37 | [facility] | | | | | SQ | | Medical | | | | | M.PREDICTED | | Center | | | | + + + +--------+ + + | EGFR | 2024-11-20 | [facility] | 8.2 | (missing) | (missing) | | ML/MIN/1.73 | 01:37 | [facility] | | | | | SQ | | Medical | | | | | M.PREDICTED | | Center | | | | + + + +--------+ + + | EGFR | 2024-11-20 | [facility] | 8.7 | mg/dl | (missing) | | ML/MIN/1.73 | 01:37 | [facility] | | | | | SQ | | Medical | | | | | M.PREDICTED | | Center | | | | + + + +--------+ + + | | 2024-11-20 | [facility] | 86.8 | fl | (missing) | | NRBC.BLD.QN. | 01:37 | [facility] | | | | | AUTO (K/UL) | | Medical | | | | | | | Center | | | | + + + +--------+ + + | EGFR | 2024-11-20 | [facility] | 97 | | GFR value | | ML/MIN/1.73 | 01:37 | [facility] | | ml/min/1.73m | was | | [...] | | | | | | | [place] | | | | | | | [...] +-------+---------+ + | POC | 2024-11-20 | [facility] | 219 | mg/dl | Glu2: | | GLUCOSE.BLD. | 03:17 | [facility] | | | Notify MD / | | QN (MG/DL) | | Medical | | | RN Follow | | | | Center | | | Order Set | + + + +-------+---------+ + + + | Result panel 3 | + + + + + + + + + | LDL | 2024-11-20 | [facility] | 2193 | mg/dl | Results | | CALCULATION | 04:00 | [facility] | | | confirmed on | | COMMENT | | Medical | | | dilution. | | (REF): | | Center | | | | + + + + + + + | LDL | 2024-11-20 | [facility] | 22 | mg/dl | (missing) | | CALCULATION | 04:00 | [facility] | | | | | COMMENT | | Medical | | | | | (REF): | | Center | | | | + + + + + + + | LDL | 2024-11-20 | [facility] | 753 | mg/dl | Performed | | CALCULATION | 04:00 | [facility] | | | at: 01 - | | COMMENT | | Medical | | | [facility] | | (REF): | | Center | | | [facility] | | | | | | | [address] | | | | | | [address] | | | | | | | [address], | | | | | | | [place], [place] | | | | | | | [phone] | | | | | | | Lab | | | | | | | Director: | | | | | | | [place] | | | | | | | Yanna QUINONES, | | | | | | | Phone: | | | | | | | [phone] | + + + + + + + | LDL | 2024-11-20 | [facility] | Comment | (missing) | In the | | CALCULATION | 04:00 | [facility] | | | absence of | | [...] + + | LDL | 2024-11-20 | [facility] | Comment | mg/dl | The | | CALCULATION | 04:00 | [facility] | | | calculation | | COMMENT [...] + + | LDL | 2024-11-20 | [facility] | Comment | mg/dl | Triglyceride | | CALCULATION | 04:00 | [facility] | | | result | | COMMENT [...] + +------+-------+ + | | 2024-11-20 | [facility] | 21 | u/l | (missing) | | LIPASE.SER/P | 04:04 | [facility] | | | | | LAS.QN (U/L) | | Medical | | | | | | | Center | | | | + + + +------+-------+ + + + | Result panel 5 | + + + + + +--------+---------+ + | ESTIMATED | 2024-11-20 | [facility] | 13.8 | % | Performed | | AVERAGE | 06:21 | [facility] | | | at: 01 - | | GLUCOSE.BLOO | | Medical | | | [facility] | | D.QN (REF) | | Center | | | [facility] | | | | | | | [address] | | | | | | | [address] | | | | | | | [address], | | | | | | | [place], [place] | | | | | | | [phone] | | | | | | | Lab | | | | | | | Director: | | | | | | | [place] | | | | | | | Yanna QUINONES, | | | | | | | Phone: | | | | | | | [phone] | | | | | | | [...] +--------+---------+ + | ESTIMATED | 2024-11-20 | [facility] | 349 | mg/dl | (missing) | | AVERAGE | 06:21 | [facility] | | | | | GLUCOSE.BLOO | | Medical | | | | | D.QN (REF) | | Center | | | | + + + +--------+---------+ + + + | Result panel 6 | + + + + + +-------+---------+ + | POC | 2024-11-20 | [facility] | 231 | mg/dl | Glu2: | | GLUCOSE.BLD. | 08:03 | [facility] | | | Follow Order | | QN (MG/DL) | | Medical | | | Set | | | | Center | | | | + + + +-------+---------+ + + + | Result panel 7 | + + + + + +-------+---------+ + | POC | 2024-11-20 | [facility] | 214 | mg/dl | Glu2: | | GLUCOSE.BLD. | 12:02 | [facility] | | | Follow Order | | QN (MG/DL) | | Medical | | | Set Notify | | | | Center | | | MD / RN | + + + +-------+---------+ + + + | Result panel 8 | + + + + + + + + + | MRSA SCREEN | 2024-11-20 | [facility] | Negative | (missing) | Performed | | | 15:30 | [facility] | | | at: 01 - | | | | Medical | | | [facility] | | | | [place] | | | [facility] | | | | | | | [address] | | | | | | | [address] | | | | | | | [address], | | | | | | | [place], [place] | | | | | | | [phone] | | | | | | | Lab | | | | | | | Director: | | | | | | | [place] | | | | | | | Yanna QUINONES, | | | | | | | Phone: | | | | | | | [phone] | + + + + + + + + + | Result panel 9 | + + + + + +-------+---------+ + | POC | 2024-11-20 | [facility] | 278 | mg/dl | Glu2: | | GLUCOSE.BLD. | 16:51 | [facility] | | | Notify MD / | | QN (MG/DL) | | Medical | | | RN Follow | | | | Center | | | Order Set | + + + +-------+---------+ + Social History +--------+ + + | date | description | facility | +--------+ + + Vital Signs No information."
[~2025-02-05 09:47] MED LIST changes: +HYDROCODON-ACE1 EA10 PO; +ONDANSETRON ODT4 MG PO
--- OUTSIDE RECORDS SUMMARY | 2025-02-05 09:54 | XMS ---
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 [facility] VISIT COUNT (12 MO.) 7 [facility] TOTAL 9 NOTE: Visits indicate total known visits. ED/UCC VISIT TRACKING (12 MO.) 02/05/2025 09:48 [facility] [place] TYPE: Emergency COMPLAINT: - SKIN PROBLEM 12/26/2024 08:38 [facility] [place] TYPE: Emergency COMPLAINT: - ABDOMINAL PAIN DIAGNOSES: - Acute pancreatitis without necrosis or infection, unspecified - Gastro-esophageal reflux disease without esophagitis - care home (current) use of antithrombotics/antiplatelets - care home (current) use of insulin - Nicotine dependence, unspecified, uncomplicated - Other terminal operator (current) drug therapy - Personal history of transient ischemic attack (TIA), and cerebral infarction without residual deficits - Pure hyperglyceridemia - Type 2 diabetes mellitus with hyperglycemia - Unspecified abdominal pain 11/29/2024 10:21 [facility] [place] TYPE: Emergency COMPLAINT: - FACIAL NUMBNESS 11/17/2024 07:54 [facility] [place] TYPE: Emergency COMPLAINT: - ABDOMINAL PAIN 11/15/2024 18:50 [facility] [place] TYPE: Emergency COMPLAINT: - BLOOD SUGAR PROBLEM DIAGNOSES: - Gastro-esophageal reflux disease without esophagitis - care home (current) use of insulin - Nicotine dependence, unspecified, uncomplicated - Other terminal operator (current) drug therapy - Pure hypercholesterolemia, unspecified - Type 2 diabetes mellitus with hyperglycemia - Type 2 diabetes mellitus without complications 09/27/2024 12:07 [facility] [place] TYPE: Emergency COMPLAINT: - FLANK PIAN DIAGNOSES: - Gastro-esophageal reflux disease without esophagitis - intermodal dispatcher (current) use of insulin - Nicotine dependence, unspecified, uncomplicated - Other nursing home (current) drug therapy - Pure hypercholesterolemia, unspecified - Type 2 diabetes mellitus without complications - Unspecified abdominal pain 09/26/2024 09:08 [facility] TYPE: Emergency COMPLAINT: - ABDOMINAL PAIN DIAGNOSES: - Acquired absence of other specified parts of digestive tract - Gastro-esophageal reflux disease without esophagitis - intermodal dispatcher (current) use of insulin - Nicotine dependence, unspecified, uncomplicated - Other terminal operator (current) drug therapy - Personal history of [...] nondominant side - Hypo-osmolality and hyponatremia - care home (current) use of insulin - care home (current) use of oral hypoglycemic drugs - Nicotine dependence, unspecified, uncomplicated - NIHSS score 2 - Obesity, unspecified - Other nursing home (current) drug therapy - Pure hyperglyceridemia - Type 2 diabetes mellitus without complications [facility] [place] [facility] DIAGNOSES: - Cerebral infarction, unspecified - Cutaneous abscess of left lower limb - intermodal dispatcher (current) use of insulin - Other acute [...] - Cellulitis of right upper limb - Cerebral infarction, unspecified - Cutaneous abscess of left lower limb - Cutaneous abscess of left lower limb - Gastro-esophageal reflux disease without esophagitis - Gastro-esophageal reflux disease without esophagitis - care home (current) use of insulin - intermodal dispatcher (current) use of insulin - intermodal dispatcher (current) use of oral hypoglycemic drugs - intermodal dispatcher (current) use of oral hypoglycemic drugs - Nicotine dependence, cigarettes, uncomplicated - Nicotine dependence, cigarettes, uncomplicated - NIHSS score 7 - Obesity, unspecified - Obesity, unspecified - Other terminal operator (current) drug therapy - Other nursing home (current) drug therapy - Pure hyperglyceridemia - Type 2 diabetes mellitus without complications - Type 2 diabetes mellitus without complications [email or web address]
[2025-02-05 10:22] LABS: BASOPHILS 0.3 % (0.2-1.2); EOSINOPHILS 4.2 % (0.8-7.0); LYMPHOCYTES 30.5 % (21.8-53.1); MCH 30.3 PG (25.7-32.2); MCHC 36.2 g/dL (32.3-36.5); MCV 83.8 fL (79.0-92.2); MONOCYTES 6.5 % (5.3-12.2); NEUTROPHILS 58.0 % (34.0-67.9); RBC 5.48 M/uL (4.63-6.08)
[2025-02-05] MEDS ORDERED: SODIUM CHLORIDE 0.9% 2,000 ML IV PRN (10:30)
[2025-02-05] MEDS ORDERED: MORPHINE SULFATE 10 MG/ML VIAL IV ONE ×2 (10:30→12:00)
[2025-02-05 11:07] LABS: GLOMERULAR FILTRATION RATE,EST 113.0 mL/min (>60); PROTEIN, TOTAL 7.3 g/dL (6.4-8.2); UREA NITROGEN 19.0 mg/dL (7-18)
[2025-02-05 11:51] LABS: BLOOD/HGB, URINE NEGATIVE (Negative); KETONE, URINE NEGATIVE (Negative); LEUK ESTERASE, URINE NEGATIVE (negative); NITRITE, URINE NEGATIVE (negative)
[2025-02-05 12:20] LABS: ALT (SGPT) 26.0 U/L (14-59); AST (SGOT) 11.0 U/L (15-37)
[2025-02-05] MEDS ORDERED: SODIUM CHLORIDE 0.9% 1,000 ML IV SCH (12:30)
[2025-02-05 13:42] VITALS: BP 115/88
== END 2025-02-05 13:41 | disposition home or self-care (01) ==
LOC: ED 09:47
PROVIDERS: Emergency Medicine
DX: E11.65 Type 2 diabetes mellitus with hyperglycemia (principal); E78.1 Pure hyperglyceridemia; R10.9 Unspecified abdominal pain; G89.29 Other chronic pain; K21.9 Gastro-esophageal reflux disease without esophagitis; E78.5 Hyperlipidemia, unspecified; F17.200 Nicotine dependence, unspecified, uncomplicated; Z79.4 Long term (current) use of insulin; Z79.02 Long term (current) use of antithrombotics/antiplatelets; Z79.899 Other long term (current) drug therapy; Z86.73 Personal history of transient ischemic attack (TIA), and cerebral infarction without residual deficits
CPT/HCPCS: 36415; 74177; 80053; 81003; 82800; 83036; 83690; 84478; 85025; 96361; 96374; 96375; 96376; 99284-25; J2270; J2405; J7030; Q9967